=== PATIENT | female | born 1960 | race Caucasian/White ===

== ENCOUNTER → 2018-10-11 | Day surgery (SDC) | payer MEDICARE ==
[~2018-10-11] MED LIST: BUSPIRONE HCL5 MG PO; ESTRADIOL1 MG PO; FENTANYL CITRATE/PF 100MCG/2 ML INJ ONE; FOLIC ACID1 MG PO; GABAPENTIN400 MG PO; GLUCAGON FOR INJ 1 MG VIAL ONE; IRON; MIDAZOLAM HCL 2 MG/2 ML VIAL ONE; ONE DAILY COMP1 EACH; OXYBUTYNIN CHLOR5 MG PO; PANTOPRAZOLE SO40 MG PO; PRAVASTATIN SOD20 MG; PROPOFOL IV EMULSION 10 MG/ML 50 ML VIAL ONE; QUETIAPINE FUMA25 MG PO; VITAMIN B-121000 MC1 IJ; XANAX2 MG; XELJANZ
--- OUTSIDE RECORDS SUMMARY | 2018-10-11 10:46 | XMS REPORT | Clinical Summary ---
Author Author [facility] Address Unknown Phone Unavailable Care Team Providers Care Gravure Press Set Up Operator Name Role Phone Brian Rogers MD PCP Allergies Not on File Medications Not on file Active Problems Not on file Encounters Care Team Description Date Type Specialty Lola Amaral MD Abdominal pain, generalized 09/26/2018 Hospital Radiology Encounter Lola Amaral MD Abdominal pain, generalized (Primary Dx) 09/19/2018 Transcribe Access Orders after 10/10/2017 Social History Date Tobacco Use Types Packs/Day Years Used Never Assessed Sex Assigned at Date Recorded Not on file Industry Job Start Date Occupation Not on file Not on file Not on file Travel End Travel History Travel Start No recent travel history available. Last Filed Vital Signs Not on file Plan of Treatment Health Maintenance Due Date Last Done Comments CERVICAL CANCER SCREENING 1982 COLON CANCER SCREENING 2011 SHINGRIX VACCINE (1 of 2) 2011 BREAST CANCER SCREENING 04/13/2016 04/13/2014, 03/24/2013 INFLUENZA VACCINE 06/01/2018 HEPATITIS B VACCINES Aged Out No longer eligible based on patient's age to complete this topic IPV VACCINES Aged Out No longer eligible based on patient's age to complete this topic MENINGOCOCCAL VACCINE Aged Out No longer eligible based on patient's age to complete this topic Procedures Comments Procedure Name Priority Date/Time Associated Diagnosis ESTIMATED GFR Routine 09/26/2018 1:07 PM [facility] POC CREATININE Routine 09/26/2018 1:[address] [address] ABDOMEN PELVIS W WO Routine 09/26/2018 Abdominal pain, CONTRAST 12:29 PM [facility] generalized after 10/10/2017 Results * Estimated GFR (09/26/2018 1:07 PM [facility] [employer]) Estimated GFR 56 (A) mL/min/1.73 m2 JOEY ALLISON Comment: [facility] CatergoryUnitsInte rpretation G1 >=90 Normal or high G2 60-89Mildly decreased V3x08-17 Mildly to moderately decreased N1v19-38 Moderately to severely decreased G4 15-29Severely decreased G5 <15Kidney failure The eGFR was calculated using the Chronic Kidney Disease Epidemiology Collaboration (CKD-EPI) equation. Interpretation is based on recommendations of the National Kidney Foundation-Kidney Disease Outcomes Quality Initiative (NKF-KDOQI) published in 2014. Specimen Blood Performing Organization Address City/[facility]/Zipcode Phone Number [facility] [address] [place] [address] PATHOLOGY AND GENOMIC MEDICINE [place] [address] [address] * POC creatinine (09/26/2018 1:07 PM [facility] [employer]) POC creatinine 1.1 (H) 0.5 - 0.9 mg/dl JOEY ALLISON Comment: [facility] Meter ID: [id number] Manager General: Millie Peterson Specimen Blood Performing Organization Address City/[facility]/Zipcode Phone Number [facility] [address] [place] [address] PATHOLOGY AND GENOMIC MEDICINE [place] [address] * CT Abdomen Pelvis W Wo Contrast (09/26/2018 12:29 PM [facility]) Narrative Performed At EXAMINATION:CT ABDOMEN PELVIS W WO CONTRAST RADIANT CLINICAL HISTORY:R10.84 Generalized abdominal pain, r10.84 TECHNIQUE: Multiple axial images of the abdomen and pelvis were obtained prior to and following intravenous administration of iodinated contrast. Sagittal and coronal computerized reformatted images were also obtained. Approximately 75 cc of Omnipaque 300 was used. Oral contrast was also used. All CT scan performed using radiation dose reduction techniques. Technical factors are evaluated and adjusted to ensure appropriate moderation of exposure. Automated dose management technology is applied to adjust the radiation dose to minimize expose whileachieving a diagnostic quality image. COMPARISON:07/20/2011. FINDINGS: Lung bases: The lung bases are unremarkable. Liver: There is no intrahepatic biliary dilatation or mass. The liver is normal in attenuation, contour and size. Gallbladder: Surgical absent.. Pancreas: The pancreas is normal in caliber and attenuation. No inflammatory process. The pancreatic duct is within normal limits. Spleen: The spleen is normal in appearance.. Kidneys and ureters: The kidneys function symmetrically. An approximately 1.1 cm cortical cyst is seen within the lower pole of the left kidney. There is no enhancing renal lesion. No hydronephrosis or renal stone. The ureters are normal in course and caliber. Adrenal glands: Unremarkable. GI tract: The small bowel is normal in course and caliber. The colon is unremarkable. No bowel wall thickening is identified. There is no acute inflammatory process. The appendix is normal. No right lower quadrant inflammation is seen. A small hiatal hernia with gastric cardia is again noted. The stomach is otherwise unremarkable. Fluid: None. Pelvis: Bladder: The urinary bladder is unremarkable. Genitalia: The uterus is surgically absent. Fluid: None. Bones: Postsurgical changes of laminectomy and posterior fixation L3-S1 are noted.. Retroperitoneum/intraperitoneum: No retroperitoneal or mesenteric pathologic lymphadenopathy is seen. Vasculature: Scattered atherosclerotic calcifications of the abdominal aorta and iliac arteries are noted. No evidence of aortic aneurysm or dissection.The mesenteric vessels and visceral vessel are patent. Abdominal wall: An approximately 2.9 x 5.4 cm left periumbilical hernia with omental fat is now seen.. There is stranding of the herniated fat. Findings are suggestive of inflammation/infarct changes. IMPRESSION: No CT evidence of appendicitis, colitis or bowel obstruction. Findings suggestive of inflammation/infarct changes of a small left periumbilical hernia with omental fat, developed in the interim. Bosniak category 1 left renal cyst. Unremarkable exam otherwise. [id number] Procedure Note Hm Interface, Radiology Results Incoming - 09/26/2018 12:51 PM [facility] EXAMINATION: CT ABDOMEN PELVIS W WO CONTRAST CLINICAL HISTORY: R10.84 Generalized abdominal pain, r10.84 TECHNIQUE: Multiple axial images of the abdomen and pelvis were obtained prior to and following intravenous administration of iodinated contrast. Sagittal and coronal computerized reformatted images were also obtained. Approximately 75 cc of Omnipaque 300 was used. Oral contrast was also used. All CT scan performed using radiation dose reduction techniques. Technical factors are evaluated and adjusted to ensure appropriate moderation of exposure. Automated dose management technology is applied to adjust the radiation dose to minimize expose while achieving a diagnostic quality image. COMPARISON: 07/20/2011. FINDINGS: Lung bases: The lung bases are unremarkable. Liver: There is no intrahepatic biliary dilatation or mass. The liver is normal in attenuation, contour and size. Gallbladder: Surgical absent.. Pancreas: The pancreas is normal in caliber and attenuation. No inflammatory process. The pancreatic duct is within normal limits. Spleen: The spleen is normal in appearance.. Kidneys and ureters: The kidneys function symmetrically. An approximately 1.1 cm cortical cyst is seen within the lower pole of the left kidney. There is no enhancing renal lesion. No hydronephrosis or renal stone. The ureters are normal in course and caliber. Adrenal glands: Unremarkable. GI tract: The small bowel is normal in course and caliber. The colon is unremarkable. No bowel wall thickening is identified. There is no acute inflammatory process. The appendix is normal. No right lower quadrant inflammation is seen. A small hiatal hernia with gastric cardia is again noted. The stomach is otherwise unremarkable. Fluid: None. Pelvis: Bladder: The urinary bladder is unremarkable. Genitalia: The uterus is surgically absent. Fluid: None. Bones: Postsurgical changes of laminectomy and posterior fixation L3-S1 are noted.. Retroperitoneum/intraperitoneum: No retroperitoneal or mesenteric pathologic lymphadenopathy is seen. Vasculature: Scattered atherosclerotic calcifications of the abdominal aorta and iliac arteries are noted. No evidence of aortic aneurysm or dissection. The mesenteric vessels and visceral vessel are patent. Abdominal wall: An approximately 2.9 x 5.4 cm left periumbilical hernia with omental fat is now seen.. There is stranding of the herniated fat. Findings are suggestive of inflammation/infarct changes. IMPRESSION: No CT evidence of appendicitis, colitis or bowel obstruction. Findings suggestive of inflammation/infarct changes of a small left periumbilical hernia with omental fat, developed in the interim. Bosniak category 1 left renal cyst. Unremarkable exam otherwise. [id number] Performing Organization Address City/State/Zipcode Phone Number [facility] [address] [place] [address] after 10/10/2017 Insurance Payer Benefit Subscriber ID Type Phone Address Plan / Group UHC MEDICARE UNITEDHC xxxxxxxxx [facility] [employer] (Home) [place] [address] Advance Directives Patient has advance care planning documents on file. For more information, melody swenson contact: Joey Allison [address] [place] [address]
--- OUTSIDE RECORDS SUMMARY | 2018-10-11 10:46 | XMS REPORT | Clinical Summary ---
Author Author [facility]Eng[facility] Address Unknown Phone Unavailable Care Team Providers Care Fashion Intern Name Role Phone Lianariley Brian Dyer PCP Allergies No Known Allergies Medications End Date Status Medication Sig Dispensed Refills Start Date Active oxybutynin (DITROPAN) 5 Take 5 mg by 0 MG tablet mouth 2 (two) times daily. Active buPROPion (WELLBUTRIN XL) Take 300 mg 0 300 MG 24 hr tablet by mouth daily. Active leflunomide (ARAVA) 20 MG Take 20 mg by 0 tablet mouth daily. Active estradiol (ESTRACE) 0.5 Take 0.5 mg 0 MG tablet by mouth daily. Active lamoTRIgine (LAMICTAL) Take 100 mg 0 100 MG tablet by mouth daily. Active traZODone (DESYREL) 100 Take 100 mg 0 MG tablet by mouth nightly. Active gabapentin (NEURONTIN) Take 100 mg 0 100 MG capsule by mouth daily. Active cyanocobalamin (VITAMIN Take 1,000 0 B-12) 1000 MCG tablet mcg by mouth every 14 (fourteen) days. Active ACETAMINOPHEN WITH Take by mouth 0 CODEINE (TYLENOL-CODEINE every 8 #4 ORAL) (eight) hours as needed. Active cholecalciferol, vitamin Take 2,000 0 D3, 1,000 unit capsule Units by mouth daily. Active folic acid (FOLVITE) 400 Take 400 mcg 0 MCG tablet by mouth daily. Active FERROUS FUMARATE (IRON Take 27 mg by 0 ORAL) mouth daily. Active multivitamin (THERAGRAN) Take 1 tablet 0 tablet by mouth daily. Active Problems Problem Noted Date Cervicalgia 08/23/2017 Cervical stenosis of spine 08/23/2017 Cervical radiculopathy 08/23/2017 Social History Date Tobacco Use Types Packs/Day Years Used Quit: 2009 Former Smoker 1 37 Smokeless Tobacco: Never Used Alcohol Use Drinks/Week oz/Week Comments Yes occasionally Sex Assigned at Date Recorded Not on file Industry Job Start Date Occupation Not on file Not on file Not on file Travel End Travel History Travel Start No recent travel history available. Last Filed Vital Signs Not on file Plan of Treatment Not on file Implants Device Identifier Shelf Expiration Date Model / Serial / Lot Implanted Type Area Manufactur er 12/30/2021 APS-5440 / [id number] / [id number] Amniofix 4x4cm Aps-5440 - Cement/Jameson N/A: Neck MIMEDX [id number] ler/[employer] Implanted: Qty: 1 on 08/23/2017 by Arnie Pérez MD 12/01/2021 [id number] / [id number] / [id number] Actifuse Shape Bone Graft N/A: Neck APATECH Implanted: Qty: 1 on 08/23/2017 by Arnie Mosley MD [id number] / [id number] / [id number] 5 Cage N/A: Neck ORTHOFIX Implanted: Qty: 2 on 08/23/2017 by Arnie Moon MD / / Cetra Plate N/A: Neck ORTHOFIX Implanted: Qty: 1 on 08/23/2017 by Arnie Moon MD / / 88 Drilling Screw N/A: Neck ORTHOFIX Implanted: Qty: 4 on 08/23/2017 by Arnie Moon MD [id number] / / Drilling Constrained Screw N/A: Neck ORTHOFIX Implanted: Qty: 2 on 08/23/2017 by Arnie Moon MD Results Not on fileafter 10/10/2017 Insurance Payer Benefit Subscriber ID Type Phone Address Plan / Group CARE IMPROVEMENT MEDICARE CARE xxxxxxxxx [facility] Advance Directives For more information, please contact: [address] [address] Date Inactivated Comments Code Status Date Activated 08/24/2017 8:47 PM Full Code 08/23/2017 3:59 PM This code status was determined by: Patient
--- OUTSIDE RECORDS SUMMARY | 2018-10-11 10:47 | XMS REPORT ---
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 M05.741 Active Problem Rheumatoid arthritis of left hand without organ or system involvement with positive rheumatoid factor M05.742 Active Problem Peripheral neuropathy, idiopathic G60.9 Active Assessment Rheumatoid arthritis with rheumatoid factor of right hand without organ or systems involvement M05.741 Active Problem Lumbago 724.2 Active Problem Rheumatoid arthritis 714.0 Active Medications Medication Code System Code Instructions Start Date End Date Status Dosage Humira Pen [facility] [address]-98 40 MG/0.8ML Subcutaneous every 2 weeks Jun 14, 2017 Oct 12, 2017 Active 0.8 ml Enbrel SureClick [facility] [address]-18 50 MG/ML Subcutaneous Once a week Jun 08, 2017 Oct 06, 2017 Inactive 1 ml Leflunomide [facility] [address]-67 20 MG Orally Once a day December 31, 2016 Dec 05, 2017 Inactive 1 tablet Results No Known Results Summary Purpose [employer] Submission
--- OUTSIDE RECORDS SUMMARY | 2018-10-11 10:47 | XMS REPORT | Continuity of Care Document ---
Author Author [facility] Interface Address Unknown Phone Unavailable Problems Problem Status Onset Date Classification Date Reported Comments Source Discharge Diagnosis: Transient ischemic attack 05/27/2014 05/29/2014 [facility] Discharge Diagnosis: Headache 05/27/2014 05/29/2014 [facility] Discharge Diagnosis: Pre-syncope 05/27/2014 05/29/2014 [facility] Discharge Diagnosis: Mood disorder 05/27/2014 05/29/2014 [facility] NEAR SYNCOPE Active 05/27/2014 [facility] Back pain Resolved Problem 05/29/2014 [facility] Rheumatoid arthritis with rheumatoid factor of right hand without organ or systems involvement Active Diagnosis 10/05/2018 Bernie Najam Rheumatoid arthritis of left hand without organ or system involvement with positive rheumatoid factor Active Problem 10/05/2018 Bernie Najam Peripheral neuropathy, idiopathic Active Problem 10/05/2018 Bernie Najam Lumbago Active Problem 10/05/2018 Bernie Najam Rheumatoid arthritis Active Problem 10/05/2018 Bernie Najam Pain, joint, multiple sites Active Diagnosis 10/05/2018 Bernie Najam Chronic pain Active Diagnosis 10/05/2018 Bernie Najam Fibromyalgia Active Diagnosis 10/05/2018 Bernie Najam High risk medication use Active Diagnosis 10/05/2018 Bernie Najam Chronic pain disorder Active Problem 10/05/2018 Bernie Najam Stiffness of left wrist joint Active Diagnosis 03/24/2018 Bernie Najam Swelling of joint, wrist, left Active Diagnosis 03/24/2018 Bernie Najam Pain in left wrist Active Diagnosis 03/24/2018 Bernie Najam Left hip pain Active Diagnosis 03/23/2018 Bernie Najam Stiffness of right wrist joint Active Diagnosis 01/25/2018 Bernie Najam Pain in right wrist Active Diagnosis 01/25/2018 Bernie Najam Pain in left shoulder Active Diagnosis 10/05/2018 Bernie Najam Trochanteric bursitis, left hip Active Diagnosis 10/05/2018 Bernie Najam B12 deficiency Active Diagnosis 10/05/2018 Bernie Castro Medications Medication Details Route Status Patient Instructions Ordering Provider Order Date Source Cyanocobalamin 1 ml shot subcutaneously Active 1000 MCG/ML subcutaneously once a week [facility] 10/03/2018 Bernie Castro Gabapentin 1 capsule Orally Active 400 MG Orally three times daily [facility] 05/05/2018 Bernie Castro Medrol as directed Orally Active 4 MG Orally Once a day [facility] 03/22/2018 Bernie Castro Sulindac 1 tablet with food Orally Active 200 MG Orally Twice a day [facility] 01/26/2018 Bernie Castro Sulindac 1 tab(s) with food as needed Orally Active 200 MG Orally Twice a day [facility] 01/25/2018 Bernie Castro Zorvolex 1 tab(s) with food as needed Orally Active 35 MG Orally Twice a day [facility] 01/04/2018 Bernie Castro Xeljanz 1 tab(s) Orally Active 5 mg Orally bid [facility] 01/04/2018 Bernie Castro Humira Pen 0.8 ml Subcutaneous Active 40 MG/0.8ML Subcutaneous every 2 weeks [facility] 06/14/2017 Bernie Castro Arthrotec 1 tablet Orally Active 50-0.2 MG Orally Twice a day prn with food [facility] 06/08/2017 Bernie Castro Enbrel SureClick 1 ml Subcutaneous Active 50 MG/ML Subcutaneous Once a week [facility] 06/08/2017 Bernie Castro Duloxetine HCl 1 capsule Orally Active 60 MG Orally Once a day [facility] 02/25/2017 Bernie Castro Vivlodex 1 capsule Orally Active 10 MG Orally Once a day [facility] 02/25/2017 Bernie Castro Leflunomide 1 tablet Orally Active 20 MG Orally Once a day [facility] 12/31/2016 Bernie Castro Meloxicam 1 tablet Orally Active 15 MG Orally Once a day prn with food [facility] 12/31/2016 Bernie Castro Zorvolex 1 capsule Orally Active 35 MG Orally bid prn with food [facility] 12/28/2016 Bernie Castro Gabapentin 1 capsule Orally Active 300 MG Orally Three times a day [facility] 09/17/2014 Bernie Castro Orencia as directed Intravenous Active 250 MG Intravenous [facility] 08/30/2014 Bernie Castro Duloxetine HCl 1 capsule Orally Active 60 MG Orally Once a day [facility] 08/08/2014 Bernie Castro Pantoprazole Sodium 1 tablet Orally Active 40 MG Orally Once a day [facility] 08/08/2014 Bernie Castro tramadol hydrochloride 50 MG Oral Tablet 50 mg, Route: PO, Drug form: TAB, ONCE, Dosing Weight 81.818, kg, Priority: STAT, Start date: 05/27/14 13:26:00, Stop date: 05/27/14 13:26:00 Inactive 05/27/2014 [facility] Morphine 4 mg, Route: IVP, Drug form: INJ, ONCE, Dosing Weight 81.818, kg, Priority: STAT, Start date: 05/27/14 11:04:00, Stop date: 05/27/14 11:04:00 Inactive 05/27/2014 [facility] Iohexol 75 mL, Route: IVP, Drug Form: SOLN, Dosing Weight 81.818, kg, ONCALL, STAT, Start date: 05/27/14 10:24:00, Duration: 1 doses or times, Dose=2.2ml/kg, Max [id number] -- "To be infused by Radiology Staff ONLY"Special Instructions: Dose=2.2ml/kg, Max [id number] -- "To be infused by Radiology Staff ONLY" Inactive 05/27/2014 [facility] Sodium Chloride 0.154 MEQ/ML Injectable Solution 1,000 mL, Rate: 125 ml/hr, Infuse over: 8 hr, Route: IV, Dosing Weight 81.818 kg, Total Volume: 1,000, Start date: 05/27/14 9:08:00, Duration: 30 day, Stop date: 06/26/14 9:07:00 Inactive 05/27/2014 [facility] Saline Flush 0.9% 5 mL, Route: IVP, Drug Form: INJ, Dosing Weight 81.818, kg, PRN, PRN Line Flush, Start date: 05/27/14 9:08:00, Duration: 30 day, Stop date: 06/26/14 9:07:00Notes: (Same as: BD Posiflush) Inactive 05/27/2014 [facility] Escitalopram Oxalate 0.5 tablet Orally Active 20 MG Orally Once a day Najam Bernie Najam Hair/Skin/Nails as directed Orally Active Orally Najam Bernie Najam Fish Oil 1 capsule Orally Active 300 MG Orally Twice a day Najam Bernie Najam Folic Acid 1 tablet Orally Active 800 MCG Orally Once a day Najam Bernie Najam B-12 Compliance Injection 1 ml Injection Active 1000 MCG/ML Injection Najam Bernie Najam Lamotrigine 2 tablets Orally Active 100 MG Orally Twice a day Najam Bernie Najam Trazodone HCl 1 tablet at bedtime Orally Active 100 MG Orally Once a day N[facility]am Bernie Najam Gabapentin not defined Orally Active 100 MG Orally Najam Bernie Najam Escitalopram Oxalate 0.5 tablet Orally Active 20 MG Orally Once a day Najam Bernie Najam Gabapentin 1 cap(s) Orally Active 300 MG Orally tid Najam Bernie Najam Folic Acid 1 tablet Orally Active 800 MCG Orally Once a day Najam Bernie Najam Hair/Skin/Nails as directed Orally Active Orally Najam Bernie Najam Fish Oil 1 capsule Orally Active 300 MG Orally Twice a day Najam Bernie Najam B-12 Compliance Injection 1 ml Injection Active 1000 MCG/ML Injection Najam Bernie Najam Lamotrigine 2 tablets Orally Active 100 MG Orally Twice a day Najam Bernie Najam BuPROPion HCl 1 tablet Orally Active 100 MG Orally Once a day Najam Bernie Najam Pantoprazole Sodium 2 tablets Orally Active 20 MG Orally Once a day Najam Bernie Najam Trazodone HCl 1 tablet at bedtime Orally Active 100 MG Orally Once a day Najam Bernie Najam Duloxetine HCl 1 capsule Orally Active 60 MG Orally Once a day Najam Bernie Najam Pantoprazole Sodium 2 tablets Orally Active 20 MG Orally Once a day Najam Bernie Najam BuPROPion HCl 1 tablet Orally Active 100 MG Orally Once a day Najam Bernie Najam Duloxetine HCl 1 capsule Orally Active 60 MG Orally Once a day Najam Bernie Najam Xeljanz 1 tab(s) Orally Active 5 mg Orally bid Najam Bernie Najam Estradiol 1 patch to skin Transdermal Active 0.05 MG/24HR Transdermal Two times a Week Najam Bernie Najam BusPIRone HCl 1 tablet Orally Active 15 MG Orally Twice a day Najam Bernie Najam Iron 1 tablet Orally Active 325 (65 Fe) MG Orally Once a day Najam Bernie Najam Oxybutynin Chloride 1 tablet Orally Active 5 MG Orally Twice a day Najam Bernie Najam Gabapentin 1 capsule Orally Active 400 MG Orally three times daily Najam Bernie Najam Cyanocobalamin 1 tablet Orally Active 1000 MCG Orally Once a day Najam Bernie Najam Sulindac 1 tablet with food Orally Active 200 MG Orally Twice a day Najam Bernie Najam Quetiapine Fumarate 1 tablet Orally Active 200 MG Orally Once a day Najam Bernie Najam BuPROPion HCl (XL) 1 tablet in the morning Orally Active 300 MG Orally Once a day Najam Bernie Najam Pravastatin Sodium 1 tablet Orally Active 20 MG Orally Once a day Najam Bernie Najam One Daily Womens 50+ as directed Orally Active - Orally Najam Bernie Najam CCP Caffeine Free Unknown NA Active Najam Bernie Najam Mirtazapine Unknown Orally Active 15 MG Orally Once a day Najam Bernie Najam Escitalopram Oxalate 1 tablet Orally Active 10 MG Orally Once a day Najam Bernie Najam Propranolol HCl 1 tablet Orally Active 20 MG Orally Three times a day Najam Bernie Najam Cyanocobalamin 1 tablet Orally Active 1000 MCG Orally Once a day Najam Bernie Najam Potassium 1 tablet Orally Active 99 MG Orally Once a day Najam Bernie Najam Sucralfate Unknown Orally Active 1 GM Orally Twice a day Najam Bernie Najam Amoxicillin 1 tablet Orally Active 875 MG Orally Twice a day Najam Bernie Najam Echinacea as directed Orally Active 350 MG Orally Najam Bernie Najam Cyclobenzaprine HCl 1 tablet Orally Active 5 MG Orally Three times a day Najam Bernie Najam Pantoprazole Sodium 1 tablet Orally Active 40 MG Orally Once a day Najam Bernie Najam Alprazolam & Diet Manage Prod Unknown Orally Active 0.5 MG Orally Najam Bernie Najam Tizanidine HCl 1 tablet as needed Orally Active 4 MG Orally every 8 hrs Gloria Castro Quetiapine Fumarate 1 tablet at bedtime Orally Active 200 MG Orally Once a day Gloria Castro Duloxetine HCl 1 capsule Orally Active 30 MG Orally Once a day Gloria Castro Gabapentin 1 capsule Orally Active 400 MG Orally Three times a day Gloria Castro Celebrex 1 capsule Orally Active 200 MG Orally Once a day Gloria Castro Lyrica 1 capsule Orally Active 50 MG Orally Three times a day Gloria Castro Savella 1 tablet Orally Active 50 MG Orally Twice a day Gloria Castro Tramadol HCl 1 tablet as needed Orally Active 50 MG Orally every 6 hrs Gloria Castro Metoclopramide HCl Unknown Orally Active 10 MG Orally Gloria Castro Allergies, Adverse Reactions, Alerts Substance Category Reaction Severity Reaction type Status Date Reported Comments Source N.K.D.A. Adverse Reaction Info Not Available Adverse Reaction Active 10/03/2018 Bernie Castro Immunizations Immunization Date Given Site Status Last Updated Comments Source Results Order Name Results Value Reference Range Date Interpretation Comments Source URINE AND STOOL UA Leuk Est Negative (05/27/14 9:18 AM) Negative 05/27/2014 [facility] URINE AND STOOL UA Nitrite Negative (05/27/14 9:18 AM) Negative 05/27/2014 [facility] URINE AND STOOL UA Urobilinogen 0.2 EU/dL 0.1 - 1.0 05/27/2014 [facility] URINE AND STOOL UA Blood Negative (05/27/14 9:18 AM) Negative 05/27/2014 [facility] URINE AND STOOL UA Bili Negative *NA* (05/27/14 9:18 AM) Negative 05/27/2014 [facility] URINE AND STOOL UA Ketones Negative mg/dL Negative mg/dL 05/27/2014 [facility] URINE AND STOOL UA Glucose Negative mg/dL Negative mg/dL 05/27/2014 [facility] URINE AND STOOL UA Protein Negative mg/dL Negative mg/dL 05/27/2014 [facility] URINE AND STOOL UA pH 5.5 5.0 - 8.0 05/27/2014 [facility] URINE AND STOOL UA Spec Grav 1.020 <=1.030 05/27/2014 [facility] URINE AND STOOL UA Turbidity Clear (05/27/14 9:18 AM) Clear 05/27/2014 [facility] URINE AND STOOL UA Color Yellow *NA* (05/27/14 9:18 AM) Yellow 05/27/2014 [facility] URINE AND STOOL UA WBC 6-10 /HPF None Seen /HPF 05/27/2014 [facility] URINE AND STOOL UA Bacteria Occasional /HPF None Seen /HPF 05/27/2014 [facility] URINE AND STOOL UA Sq Epi Occasional /LPF Few /LPF 05/27/2014 [facility] DRUG SCREEN U Benzodia Scr Negative *NA* (05/27/14 9:18 AM) Negative 05/27/2014 [facility] DRUG SCREEN U Cocaine Scr Negative *NA* (05/27/14 9:18 AM) Negative 05/27/2014 [facility] DRUG SCREEN U Cannab Scr Negative *NA* (05/27/14 9:18 AM) Negative 05/27/2014 [facility] DRUG SCREEN U Phencyc Scr Negative *NA* (05/27/14 9:18 AM) Negative 05/27/2014 [facility] DRUG SCREEN U Opiate Scr Positive *ABN* (05/27/14 9:18 AM) Negative 05/27/2014 [facility] DRUG SCREEN UDS Note See Note 3 (05/27/14 9:18 AM) 05/27/2014 3Interpretive Data: Drugs reported as positive have not been confirmed by a second method and should be used for medical purposes only. To order confirmation, contact laboratory. note: Below are cut-off concentrations for all urine drugs of abuse performed in the laboratory. Some drugs listed in the table may not be included in this panel. Description Cut-off concentration Amphetamine 1000 ng/mL Barbiturates 200 ng/mL Benzodiazepines 300 ng/mL Cocaine metabolites 300 ng/mL Opiates 300 ng/mL Phencyclidine 25 ng/mL Propoxyphene 300 ng/mL Marijuana metabolites 50 ng/mL Methadone 300 ng/mL Urine alcohol 20 mg/dL [facility] DRUG SCREEN U Jessica Scr Negative *NA* (05/27/14 9:18 AM) Negative 05/27/2014 [facility] DRUG SCREEN U Amph Scr Negative *NA* (05/27/14 9:18 AM) Negative 05/27/2014 [facility] CARDIAC ENZYMES Troponin-I null 0.00 - 0.40 05/27/2014 [facility] CARDIAC ENZYMES Total CK 85 unit/L 12 - 191 05/27/2014 [facility] CHEM PANEL Globulin 3.5 g/dL 2.0 - 4.0 05/27/2014 [facility] CHEM PANEL A/G Ratio 1.0 0.7 - 1.6 05/27/2014 [facility] CHEM PANEL B/C Ratio 20 6 - 25 05/27/2014 [facility] CHEM PANEL AGAP 15.5 meq/L 10.0 - 20.0 05/27/2014 [facility] CHEM PANEL AST 28 unit/L 0 - 37 05/27/2014 [facility] CHEM PANEL Alk Phos 101 unit/L 39 - 136 05/27/2014 [facility] CHEM PANEL Bili Total 0.5 mg/dL 0.2 - 1.3 05/27/2014 [facility] CHEM PANEL Total Protein 7.1 g/dL 6.4 - 8.4 05/27/2014 [facility] CHEM PANEL ALT 45 unit/L 0 - 65 05/27/2014 [facility] CHEM PANEL Albumin Lvl 3.6 g/dL 3.5 - 5.0 05/27/2014 [facility] CHEM PANEL eGFR 64 mL/min/1.73m2 05/27/2014 1Result Comment: The eGFR is calculated using the CKD-EPI formula. In most young, healthy individuals the eGFR will be >90 mL/min/1.73m2. The eGFR declines with age. An eGFR of 60-89 may be normal in some populations, particularly the elderly, for whom the CKD-EPI formula has not been extensively validated. Use of the eGFR is not recommended in the following populations: Individuals with unstable creatinine concentrations, including patients and those with serious co-morbid conditions. Patients with extremes in muscle mass or diet. The data above are obtained from the National Kidney Disease Education Program (NKDEP) which additionally recommends that when the eGFR is used in patients with extremes of body mass index for purposes of drug dosing, the eGFR should be multiplied by the estimated BMI. [facility] CHEM PANEL Sodium Lvl 136 meq/L 135 - 145 05/27/2014 [facility] CHEM PANEL Chloride Lvl 103 meq/L 95 - 109 05/27/2014 [facility] CHEM PANEL CO2 21 meq/L 24 - 32 05/27/2014 [facility] CHEM PANEL Potassium Lvl 3.5 meq/L 3.5 - 5.1 05/27/2014 [facility] CHEM PANEL Calcium Lvl 8.3 mg/dL 8.5 - 10.5 05/27/2014 [facility] CHEM PANEL BUN 20 mg/dL 7 - 22 05/27/2014 [facility] CHEM PANEL Creatinine Lvl 1.0 mg/dL 0.5 - 1.4 05/27/2014 [facility] CHEM PANEL Glucose Lvl 94 mg/dL 70 - 99 05/27/2014 2Interpretive Data: Adult reference range values reflect the clinical guidelines of the [place] [employer]. [facility] HEMATOLOGY PTT 26.0 s 22.9 - 35.8 05/27/2014 7Interpretive Data: Heparin Therapeutic Range: 57 - 92 Seconds [facility] HEMATOLOGY PT 14.1 s 12.0 - 14.7 05/27/2014 [facility] HEMATOLOGY INR 1.10 0.85 - 1.17 05/27/2014 6Interpretive Data: RECOMMENDED RANGES FOR PROTIME INR: 2.0-3.0 for most medical and surgical thromboembolic states. 2.5-3.5 for artificial heart valves and recurrent embolism. INR SHOULD BE USED ONLY FOR PATIENTS ON STABLE ANTICOAGULANT THERAPY. [facility] HEMATOLOGY Hct 33.1 % 36.0 - 48.0 05/27/2014 [facility] HEMATOLOGY RBC 3.56 M/CMM 4.20 - 5.40 05/27/2014 [facility] HEMATOLOGY MCV 92.8 fL 81.0 - 99.0 05/27/2014 [facility] HEMATOLOGY Hgb 11.6 g/dL 12.0 - 16.0 05/27/2014 [facility] HEMATOLOGY MCH 32.4 pg 27.0 - 31.0 05/27/2014 [facility] HEMATOLOGY Platelet 197 K/CMM 133 - 450 05/27/2014 [facility] HEMATOLOGY MCHC 34.9 g/dL 32.0 - 36.0 05/27/2014 [facility] HEMATOLOGY MPV 7.8 fL 7.4 - 10.4 05/27/2014 [facility] HEMATOLOGY RDW 13.1 % 11.5 - 14.5 05/27/2014 [facility] HEMATOLOGY WBC 6.5 K/CMM 3.7 - 10.4 05/27/2014 [facility] HEMATOLOGY Monocytes # 0.9 K/CMM 0.0 - 0.8 05/27/2014 [facility] HEMATOLOGY Lymphocytes # 3.3 K/CMM 1.0 - 5.5 05/27/2014 [facility] HEMATOLOGY Segs-Bands # 2.1 K/CMM 1.5 - 8.1 05/27/2014 [facility] HEMATOLOGY Basophils # 0.0 K/CMM 0.0 - 0.2 05/27/2014 [facility] HEMATOLOGY Eosinophils # 0.2 K/CMM 0.0 - 0.5 05/27/2014 [facility] HEMATOLOGY Segs 32.0 % 45.0 - 75.0 05/27/2014 [facility] HEMATOLOGY Basophils 0.1 % 0.0 - 1.0 05/27/2014 [facility] HEMATOLOGY Eosinophils 3.0 % 0.0 - 4.0 05/27/2014 [facility] HEMATOLOGY Lymphocytes 51.4 % 20.0 - 40.0 05/27/2014 [facility] HEMATOLOGY Monocytes 13.5 % 2.0 - 12.0 05/27/2014 [facility] TOXICOLOGY Etoh (%) <0.003 % 05/27/2014 4Interpretive Data: Ethanol testing results should be used for medical purposes only. Negative Range: <0.003% Toxic Range: >0.25% [facility] TOXICOLOGY Ethanol Lvl <3.0 mg/dL 05/27/2014 5Interpretive Data: Negative Range: <3 mg/dL Toxic Range: >250 mg/dL [facility] Brain wo contrast CT Brain wo contrast CT EXAM: CTA NECK EXAM: CTA BRAIN EXAM: NONCONTRAST CT BRAIN INDICATION: Aphasia COMPARISON: None TECHNIQUE Rapid acquisition spiral images were obtained following the intravenous administration of 85 cc Omnipaque 350. 3D MIP reconstructions were performed. Precontrast images of the brain were also obtained. DISCUSSION: NONCONTRAST CT HEAD: A few hypodensities in the left frontal and temporoparietal white matter appear chronic appearing Hypodensity extending into the genu of the corpus callosum is age-indeterminate. No intracranial hemorrhage. No mass effect. No hydrocephalus. Mucosal thickening in a few anterior and posterior ethmoidal air cells. Calvarium is intact. . CTA BRAIN: No proximal occlusion, flow limiting stenosis or aneurysm is identified intracranially. CTA NECK: The common carotid arteries are normal in size. The carotid bifurcations show mild atherosclerosis without significant stenosis. Vertebral arteries are codominant and have a normal course and caliber in the neck. IMPRESSION: 1. No major branch occlusion, flow limiting stenosis, or aneurysm is identified intracranially. 2. White matter lesions in the left cerebral hemisphere appear mostly chronic, however a lesion extending into the genu of the corpus callosum is age-indeterminate. No intracranial hemorrhage. Differential considerations include ischemic changes versus demyelinating lesions. Further evaluation with MRI would be helpful. 3. Mild atherosclerosis at the carotid bifurcations without significant stenosis by NASCET criteria. Vertebral arteries are unremarkable. All quantitative and qualitative assessments of carotid bifurcation and proximal internal carotid artery stenosis are made at referencing the distal internal carotid artery. 05/27/2014 - - Read by: Miguelina Cisneros MD Dictated Date/time: 05/27/14 12:21 Electronically Signed by: Miguelina Cisneros MD 05/27/14 12:37 FINAL REPORT [facility] Brain/Neck CTA Brain/Neck CTA EXAM: CTA NECK EXAM: CTA BRAIN EXAM: NONCONTRAST CT BRAIN INDICATION: Aphasia COMPARISON: None TECHNIQUE Rapid acquisition spiral images were obtained following the intravenous administration of 85 cc Omnipaque 350. 3D MIP reconstructions were performed. Precontrast images of the brain were also obtained. DISCUSSION: NONCONTRAST CT HEAD: A few hypodensities in the left frontal and temporoparietal white matter appear chronic appearing Hypodensity extending into the genu of the corpus callosum is age-indeterminate. No intracranial hemorrhage. No mass effect. No hydrocephalus. Mucosal thickening in a few anterior and posterior ethmoidal air cells. Calvarium is intact. . CTA BRAIN: No proximal occlusion, flow limiting stenosis or aneurysm is identified intracranially. CTA NECK: The common carotid arteries are normal in size. The carotid bifurcations show mild atherosclerosis without significant stenosis. Vertebral arteries are codominant and have a normal course and caliber in the neck. IMPRESSION: 1. No major branch occlusion, flow limiting stenosis, or aneurysm is identified intracranially. 2. White matter lesions in the left cerebral hemisphere appear mostly chronic, however a lesion extending into the genu of the corpus callosum is age-indeterminate. No intracranial hemorrhage. Differential considerations include ischemic changes versus demyelinating lesions. Further evaluation with MRI would be helpful. 3. Mild atherosclerosis at the carotid bifurcations without significant stenosis by NASCET criteria. Vertebral arteries are unremarkable. All quantitative and qualitative assessments of carotid bifurcation and proximal internal carotid artery stenosis are made at referencing the distal internal carotid artery. 05/27/2014 - - Read by: Miguelina Cisneros MD Dictated Date/time: 05/27/14 12:21 Electronically Signed by: Miguelina Cisneros MD 05/27/14 12:37 FINAL REPORT [facility] Chest 2 views Chest 2 views EXAM: XR CHEST 2 VIEWS DATE: 2014-05-27 10:04:00 INDICATION: Syncope COMPARISON: None available. TECHNIQUE: Frontal and lateral chest radiographs DISCUSSION: No pulmonary or pleural based abnormality is identified. Pulmonary vascularity is normal. The cardiomediastinal silhouette is normal. No acute bony abnormality is identified. IMPRESSION: No acute cardiopulmonary abnormality identified. 05/27/2014 - - This report was dictated by a [facility] Worker/Fellow. I have personally reviewed the images as well as the Resident's interpretation and agree with the findings. Read by: Aravind Yen (ryan Resident: Aravind Yen (ryan Dictated Date/time: 05/27/14 10:59 Electronically Signed by: Cynthia Moncada MD 05/27/14 14:14 FINAL REPORT [facility] Vital Signs Vital Sign Value Date Comments Source Height 65.5 10/03/2018 Bernie Najam Diastolic (mm Hg) 87 10/03/2018 Bernie Najam Systolic (mm Hg) 133 10/03/2018 Bernie Najam Weight 200.6 10/03/2018 Bernie Najam Height 65.5 05/05/2018 Bernie Najam Diastolic (mm Hg) 97 05/05/2018 Bernie Najam Systolic (mm Hg) 124 05/05/2018 Bernie Najam Weight 205.6 05/05/2018 Bernie Najam Height 65.5 03/22/2018 Bernie Najam Diastolic (mm Hg) 81 03/22/2018 Bernie Najam Systolic (mm Hg) 118 03/22/2018 Bernie Najam Weight 189 03/22/2018 Bernie Najam Height 65.5 01/24/2018 Bernie Najam Diastolic (mm Hg) 81 01/24/2018 Bernie Najam Systolic (mm Hg) 118 01/24/2018 Bernie Najam Weight 189 01/24/2018 Bernie Najam Height 65.5 01/04/2018 Bernie Najam Diastolic (mm Hg) 81 01/04/2018 Bernie Najam Systolic (mm Hg) 118 01/04/2018 Bernie Najam Weight 189 01/04/2018 Bernie Najam Height 65.5 06/08/2017 Bernie Najam Diastolic (mm Hg) 81 06/08/2017 Bernie Najam Systolic (mm Hg) 113 06/08/2017 Bernie Najam Weight 190 06/08/2017 Bernie Najam Height 65.5 06/02/2017 Bernie Najam Diastolic (mm Hg) 88 06/02/2017 Bernie Najam Systolic (mm Hg) 114 06/02/2017 Bernie Najam Weight 202 06/02/2017 Bernie Najam Height 65.5 02/25/2017 Bernie Najam Diastolic (mm Hg) 83 02/25/2017 Bernie Najam Systolic (mm Hg) 127 02/25/2017 Bernie Najam Weight 202 02/25/2017 Bernie Najam Height 65.5 12/28/2016 Bernie Najam Diastolic (mm Hg) 99 12/28/2016 Bernie Najam Systolic (mm Hg) 137 12/28/2016 Bernie Najam Weight 209.4 12/28/2016 Bernie Najam Systolic (mm Hg) 124 05/27/2014 [facility] Respitory Rate 18 05/27/2014 [facility] Heart Rate 89 05/27/2014 [facility] Diastolic (mm Hg) 74 05/27/2014 [facility] Temperature Oral (F) 98.2 F 05/27/2014 [facility] Heart Rate 92 05/27/2014 [facility] Diastolic (mm Hg) 70 05/27/2014 [facility] Systolic (mm Hg) 115 05/27/2014 [facility] Heart Rate 89 05/27/2014 [facility] Diastolic (mm Hg) 80 05/27/2014 [facility] Systolic (mm Hg) 119 05/27/2014 [facility] Height 162.56 cm 05/27/2014 [facility] BMI Calculated 30.96 05/27/2014 [facility] Weight 81.818 05/27/2014 [facility] Temperature Oral (F) 98.1 F 05/27/2014 [facility] Respitory Rate 18 05/27/2014 [facility] Encounters Location Location Details Encounter Type Encounter Number Reason For Visit Attending Provider ADM Date DC Date Status Source [facility] [id number] Rivas Paz 05/27/2014 05/27/2014 [facility] Follow up [id number] 12/28/2016 12/28/2016 [facility] Follow up [id number] 12/28/2016 12/28/2016 [facility] ZORVOLEX- TO EXPENSIVE/Meloxicam/Leflunomide - FYI [id number] 12/30/2016 12/30/2016 Bernie Castro Procedures Procedure Code Date Perfomer Comments Source
--- OUTSIDE RECORDS SUMMARY | 2018-10-11 10:47 | XMS REPORT ---
Author Author Bernie Castro Organization [employer] Address Unknown Phone Unavailable Care Team Providers Care Retail Maintenance Technician Name Role Phone Bernie Castro CP Unavailable Allergies, Adverse Reactions, Alerts Substance Reaction Event Type N.K.D.A. Info Not Available Non Drug Allergy Problems Problem Type Condition Code Onset Dates Condition Status Assessment Pain, joint, multiple sites M25.50 Active Assessment Chronic pain G89.29 Active Assessment Fibromyalgia M79.7 Active Assessment Peripheral neuropathy, idiopathic G60.9 Active Problem Rheumatoid arthritis with rheumatoid factor of right hand without organ or systems involvement M05.741 Active Problem Rheumatoid arthritis of left hand without organ or system involvement with positive rheumatoid factor M05.742 Active Problem Peripheral neuropathy, idiopathic G60.9 Active Assessment Rheumatoid arthritis with rheumatoid factor of right hand without organ or systems involvement M05.741 Active Assessment High risk medication use Z79.899 Active Problem Lumbago 724.2 Active Problem Rheumatoid arthritis 714.0 Active Medications Medication Code System Code Instructions Start Date End Date Status Dosage B-12 Compliance Injection [facility] [address]-30 1000 MCG/ML Injection Active 1 ml Trazodone HCl [facility] [address]-03 100 MG Orally Once a day Active 1 tablet at bedtime Duloxetine HCl [facility] [address]-68 60 MG Orally Once a day Active 1 capsule Pantoprazole Sodium [facility] [address]-80 20 MG Orally Once a day Active 2 tablets Leflunomide [facility] [address]-42 20 MG Orally Once a day December 31, 2016 Dec 05, 2017 Active 1 tablet Lamotrigine [facility] [address]-24 100 MG Orally Twice a day Active 2 tablets Gabapentin [facility] [address]-95 100 MG Orally Active not defined Arthrotec [facility] [address]-83 50-0.2 MG Orally Twice a day prn with food Jun 08, 2017 Dec 05, 2017 Active 1 tablet BuPROPion HCl [facility] [address]-00 100 MG Orally Once a day Active 1 tablet Vivlodex [facility] [address]-03 10 MG Orally Once a day February 25, 2017 Jun 25, 2017 Inactive 1 capsule Folic Acid [facility] [address]-79 800 MCG Orally Once a day Active 1 tablet Enbrel SureClick [facility] [address]-88 50 MG/ML Subcutaneous Once a week Jun 08, 2017 Oct 06, 2017 Active 1 ml Fish Oil [facility] [address]-11 300 MG Orally Twice a day Active 1 capsule Escitalopram Oxalate [facility] [address]-23 20 MG Orally Once a day Active 0.5 tablet Hair/Skin/Nails [facility] [address]28 Orally Active as directed Vital Signs Date/Time: Jun 08, 2017 Height 65.5 in Blood Pressure Diastolic 81 mm Hg Blood Pressure Systolic 113 mm Hg Weight 190 lbs Results No Known Results Summary Purpose [employer]ClinicalWorks Submission
--- OUTSIDE RECORDS SUMMARY | 2018-10-11 10:47 | XMS REPORT ---
Author Author Bernie Castro Organization [employer] Address Unknown Phone Unavailable Care Team Providers Care Contribution Solicitor Name Role Phone Bernie Castro CP Unavailable Allergies No Known Allergies Problems Problem Type Condition Code Onset Dates Condition Status Problem Peripheral neuropathy, idiopathic G60.9 Active Problem Rheumatoid arthritis with rheumatoid factor of right hand without organ or systems involvement M05.741 Active Problem Chronic pain disorder G89.4 Active Problem Rheumatoid arthritis 714.0 Active Problem Rheumatoid arthritis of left hand without organ or system involvement with positive rheumatoid factor M05.742 Active Problem Lumbago 724.2 Active Medications No Known Medications Results No Known Results Summary Purpose [employer]Clinical[employer] Submission
--- OUTSIDE RECORDS SUMMARY | 2018-10-11 10:47 | XMS REPORT ---
Author Author Bernie Castro [facility] e[employer] Address Unknown Phone Unavailable Care Team Providers Care Marine Equipment Test Engineer Name Role Phone Bernie Castro CP Unavailable Allergies, Adverse Reactions, Alerts Substance Reaction Event Type N.K.D.A. Info Not Available Non Drug Allergy Problems Problem Type Condition Code Onset Dates Condition Status Assessment Fibromyalgia M79.7 Active Assessment High risk medication use Z79.899 Active Assessment Chronic pain G89.29 Active Assessment Peripheral neuropathy, idiopathic G60.9 Active Assessment Pain, joint, multiple sites M25.50 Active Problem Peripheral neuropathy, idiopathic G60.9 Active Problem Rheumatoid arthritis with rheumatoid factor of right hand without organ or systems involvement M05.741 Active Problem Chronic pain disorder G89.4 Active Problem Rheumatoid arthritis 714.0 Active Assessment Rheumatoid arthritis with rheumatoid factor of right hand without organ or systems involvement M05.741 Active Problem Rheumatoid arthritis of left hand without organ or system involvement with positive rheumatoid factor M05.742 Active Problem Lumbago 724.2 Active Medications Medication Code System Code Instructions Start Date End Date Status Dosage Xeljanz [facility] 55793931065 5 mg Orally bid January 04, 2018 Active 1 tab(s) Trazodone HCl [facility] 75481469837 100 MG Orally Once a day Active 1 tablet at bedtime Hair/Skin/Nails [facility] 97067861594 Orally Active as directed Escitalopram Oxalate [facility] 97405929843 20 MG Orally Once a day Active 0.5 tablet B-12 Compliance Injection [facility] 52182670577 1000 MCG/ML Injection Active 1 ml Duloxetine HCl ND 83607503989 60 MG Orally Once a day Inactive 1 capsule Lamotrigine ND 24876267743 100 MG Orally Twice a day Active 2 tablets BuPROPion HCl [facility] 64971210858 100 MG Orally Once a day Active 1 tablet Fish Oil [facility] 65488831635 300 MG Orally Twice a day Active 1 capsule Pantoprazole Sodium [facility] 58587592957 20 MG Orally Once a day Active 2 tablets Gabapentin [facility] 66592895433 300 MG Orally tid Active 1 cap(s) Zorvolex [facility] 53188888581 35 MG Orally Twice a day January 04, 2018 May 04, 2018 Active 1 tab(s) with food as needed Folic Acid [facility] 40881359179 800 MCG Orally Once a day Active 1 tablet Vital Signs Date/Time: January 04, 2018 Height 65.5 in Blood Pressure Diastolic 81 mm Hg Blood Pressure Systolic 118 mm Hg Weight 189 lbs Results No Known Results Summary Purpose eClinicalWorks Submission
--- OUTSIDE RECORDS SUMMARY | 2018-10-11 10:47 | XMS REPORT ---
Author Author Bernie Castro Organization [employer] Address Unknown Phone Unavailable Care Team Providers Care Edge Sawyer Name Role Phone Bernie Castro CP Unavailable Allergies No Known Allergies Problems Problem Type Condition Code Onset Dates Condition Status Problem Peripheral neuropathy, idiopathic G60.9 Active Problem Rheumatoid arthritis with rheumatoid factor of right hand without organ or systems involvement M05.741 Active Problem Chronic pain disorder G89.4 Active Problem Rheumatoid arthritis 714.0 Active Assessment Left hip pain M25.552 Active Problem Rheumatoid arthritis of left hand without organ or system involvement with positive rheumatoid factor M05.742 Active Problem Lumbago 724.2 Active Medications Medication Code System Code Instructions Start Date End Date Status Dosage Medrol [facility] 99167826982 4 MG Orally Once a day March 22, 2018 Active as directed Results No Known Results Summary Purpose [employer]ClinicalWorks Submission
--- OUTSIDE RECORDS SUMMARY | 2018-10-11 10:47 | XMS REPORT ---
Author Author Bernie Castro Organization [employer] Address Unknown Phone Unavailable Care Team Providers Care Oliving Machine Operator Name Role Phone Bernie Castro CP Unavailable [...]
--- OUTSIDE RECORDS SUMMARY | 2018-10-11 10:47 | XMS REPORT ---
Author Author Bernie Castro Organization [employer] Address Unknown Phone Unavailable Care Team Providers Care Chapter Relations Administrator Name Role Phone Bernie Castro CP Unavailable Allergies No Known Allergies Problems Problem Type Condition Code Onset Dates Condition Status Problem Peripheral neuropathy, idiopathic G60.9 Active Problem Rheumatoid arthritis with rheumatoid factor of right hand without organ or systems involvement M05.741 Active Problem Chronic pain disorder G89.4 Active Problem Rheumatoid arthritis 714.0 Active Assessment Chronic pain disorder G89.4 Active Problem Rheumatoid arthritis of left hand without organ or system involvement with positive rheumatoid factor M05.742 Active Problem Lumbago 724.2 Active Medications No Known Medications Results No Known Results Summary Purpose eClinicalWorks Submission
--- OUTSIDE RECORDS SUMMARY | 2018-10-11 10:47 | XMS REPORT | Summary of Care ---
Author Organization Unknown Address Unknown Phone Unavailable Encounter ERIC Foy(CLOVIS) [id number] Date(s): 05/27/14 - 05/27/[address] Discharge Diagnosis: Transient ischemic attack (TIA) Discharge Diagnosis: Headache Discharge Diagnosis: Pre-syncope Discharge Diagnosis: Mood disorder Discharge Disposition: Home Physician Attending: Rivas Paz MD Reason for Visit NEAR SYNCOPE Vital Signs 1 2 3 Most recent to oldest [Reference Range]: 162.56 cm (05/27/14 8:24 AM) Height 98.2 DegF (05/27/14 2:30 PM) 98.1 DegF (05/27/14 8:24 AM) Temperature Oral [96.4-99.1 DegF] 124 mmHg (05/27/14 2:30 PM) 115 mmHg (05/27/14 1:20 PM) 119 mmHg (05/27/14 11:05 AM) Systolic Blood Pressure [90-140 mmHg] 74 mmHg (05/27/14 2:30 PM) 70 mmHg (05/27/14 1:20 PM) 80 mmHg (05/27/14 11:05 AM) Diastolic Blood Pressure [60-90 mmHg] 18 BRMIN (05/27/14 2:30 PM) 18 BRMIN (05/27/14 8:24 AM) Respiratory Rate [14-20 BRMIN] 89 bpm (05/27/14 2:30 PM) 92 bpm (05/27/14 1:20 PM) 89 bpm (05/27/14 11:05 AM) Peripheral Pulse Rate [60-100 bpm] 81.818 kg (05/27/14 8:24 AM) Weight 30.96 m2 (05/27/14 8:24 AM) Body Mass Index Problem List Condition Effective Dates Status Health Status Informant Back pain(Confirmed) Resolved Allergies, Adverse Reactions, Alerts Substance Reaction Severity Status NKDA Active Medications morphine Sulfate 4 mg, Route: IVP, Drug form: INJ, ONCE, Dosing Weight 81.818, kg, Priority: STAT , Start date: 05/27/14 11:04:00, Stop date: 05/27/14 11:04:00 Start Date: 05/27/14 Stop Date: 05/27/14 Status: Completed Omnipaque 350mg/ml 75 mL, Route: IVP, Drug Form: SOLN, Dosing Weight 81.818, kg, ONCALL, STAT, Star t date: 05/27/14 10:24:00, Duration: 1 doses or times, Dose=2.2ml/kg, Max dose= 100ml -- "To be infused by Radiology Staff ONLY" Special Instructions: Dose=2.2ml/kg, Max odrh=657vg -- "To be infused by Radiol ogy Staff ONLY" Start Date: 05/27/14 Stop Date: 05/27/14 Status: Completed Saline Flush 0.9% 5 mL, Route: IVP, Drug Form: INJ, Dosing Weight 81.818, kg, PRN, PRN Line Flush, Start date: 05/27/14 9:08:00, Duration: 30 day, Stop date: 06/26/14 9:07:00 Notes: (Same as: BD Posiflush) Start Date: 05/27/14 Stop Date: 05/27/14 Status: Discontinued Sodium Chloride 0.9% (Bolus) IV 1,000 mL, 1,000 ml/hr, Infuse Over: 1 hr, Route: IV, 1,000, Drug form: INJ, ONCE , Priority: STAT, Dosing Weight 81.818 kg, Start date: 05/27/14 9:08:00, Duratio n: 1 doses or times, Stop date: 05/27/14 9:08:00 Start Date: 05/27/14 Stop Date: 05/27/14 Status: Completed Sodium Chloride 0.9% IV 1,000 mL 1,000 mL, Rate: 125 ml/hr, Infuse over: 8 hr, Route: IV, Dosing Weight 81.818 kg , Total Volume: 1,000, Start date: 05/27/14 9:08:00, Duration: 30 day, Stop date : 06/26/14 9:07:00 Start Date: 05/27/14 Stop Date: 05/27/14 Status: Discontinued tramadol 50 mg oral tablet 50 mg, Route: PO, Drug form: TAB, ONCE, Dosing Weight 81.818, kg, Priority: STAT , Start date: 05/27/14 13:26:00, Stop date: 05/27/14 13:26:00 Start Date: 05/27/14 Stop Date: 05/27/14 Status: Completed Results ELECTROLYTES Most recent to 1 oldest [Reference Range]: Sodium Lvl [135-145 136 mEq/L mEq/L] (05/27/14 9:18 AM) Potassium Lvl 3.5 mEq/L [3.5-5.1 mEq/L] (05/27/14 9:18 AM) Chloride Lvl [95-109 103 mEq/L mEq/L] (05/27/14 9:18 AM) CO2 [24-32 mEq/L] 21 mEq/L *LOW* (05/27/14 9:18 AM) AGAP [10.0-20.0 15.5 mEq/L mEq/L] (05/27/14 9:18 AM) CHEM PANEL Most recent to 1 oldest [Reference Range]: Creatinine Lvl 1.0 mg/dL [0.5-1.4 mg/dL] (05/27/14 9:18 AM) eGFR 64 mL/min/1.73m2 1 *NA* (05/27/14 9:18 AM) BUN [7-22 mg/dL] 20 mg/dL (05/27/14 9:18 AM) B/C Ratio [6-25] 20 (05/27/14 9:18 AM) Glucose Lvl [70-99 94 mg/dL 2 mg/dL] (05/27/14 9:18 AM) Total Protein 7.1 g/dL [6.4-8.4 g/dL] (05/27/14 9:18 AM) Albumin Lvl [3.5-5.0 3.6 g/dL g/dL] (05/27/14 9:18 AM) Globulin [2.0-4.0 3.5 g/dL g/dL] (05/27/14 9:18 AM) A/G Ratio [0.7-1.6] 1.0 (05/27/14 9:18 AM) Calcium Lvl 8.3 mg/dL [8.5-10.5 mg/dL] *LOW* (05/27/14 9:18 AM) ALT [0-65 unit/L] 45 unit/L (05/27/14 9:18 AM) AST [0-37 unit/L] 28 unit/L (05/27/14 9:18 AM) Alk Phos [39-136 101 unit/L unit/L] (05/27/14 9:18 AM) Bili Total [0.2-1.3 0.5 mg/dL mg/dL] (05/27/14 9:18 AM) 1Result Comment: The eGFR is calculated using [...] from the National Kidney Disease Education Program ( NKDEP) which additionally recommends that when the eGFR is used in patients with extremes of body mass index for purposes of drug dosing, the eGFR should be mul tiplied by the estimated BMI. 2Interpretive Data: Adult reference range values reflect the clinical guidelines of the [place] [employer]. CARDIAC ENZYMES Most recent to 1 oldest [Reference Range]: Total CK [12-191 85 unit/L unit/L] (05/27/14 9:18 AM) Troponin-I <0.02 ng/mL [0.00-0.40 ng/mL] (05/27/14 9:18 AM) DRUG SCREEN Most recent to 1 oldest [Reference Range]: U Amph Scr Negative [Negative] *NA* (05/27/14 9:18 AM) U Jessica Scr Negative [Negative] *NA* (05/27/14 9:18 AM) U Benzodia Scr Negative [Negative] *NA* (05/27/14 9:18 AM) U Cocaine Scr Negative [Negative] *NA* (05/27/14 9:18 AM) U Opiate Scr Positive [Negative] *ABN* (05/27/14 9:18 AM) U Phencyc Scr Negative [Negative] *NA* (05/27/14 9:18 AM) U Cannab Scr Negative [Negative] *NA* (05/27/14 9:18 AM) UDS Note See Note 3 (05/27/14 9:18 AM) 3Interpretive Data: Drugs reported as positive have [...] Methadone 300 ng/mL Urine alcohol 20 mg/dL TOXICOLOGY Most recent to 1 oldest [Reference Range]: Etoh (%) <0.003 % 4 (05/27/14 9:18 AM) Ethanol Lvl <3.0 mg/dL 5 (05/27/14 9:18 AM) 4Interpretive Data: Ethanol testing results should be used for medical purposes only. Negative Range: <0.003% Toxic Range: >0.25% 5Interpretive Data: Negative Range: <3 mg/dL Toxic Range: >250 mg/dL URINE AND STOOL Most recent to 1 oldest [Reference Range]: UA Turbidity [Clear] Clear (05/27/14 9:18 AM) UA Color [Yellow] Yellow *NA* (05/27/14 9:18 AM) UA pH [5.0-8.0] 5.5 (05/27/14 9:18 AM) UA Spec Grav 1.020 [<=1.030] (05/27/14 9:18 AM) UA Glucose [Negative Negative mg/dL mg/dL] (05/27/14 9:18 AM) UA Blood [Negative] Negative (05/27/14 9:18 AM) UA Ketones [Negative Negative mg/dL mg/dL] *NA* (05/27/14 9:18 AM) UA Protein [Negative Negative mg/dL mg/dL] (05/27/14 9:18 AM) UA Urobilinogen 0.2 EU/dL [0.1-1.0 EU/dL] (05/27/14 9:18 AM) UA Bili [Negative] Negative *NA* (05/27/14 9:18 AM) UA Leuk Est Negative [Negative] (05/27/14 9:18 AM) UA Nitrite Negative [Negative] (05/27/14 9:18 AM) UA WBC [None Seen 6-10 /HPF /HPF] *ABN* (05/27/14 9:18 AM) UA Bacteria [None Occasional /HPF Seen /HPF] (05/27/14 9:18 AM) UA Sq Epi [Few /LPF] Occasional /LPF (05/27/14 9:18 AM) HEMATOLOGY Most recent to 1 oldest [Reference Range]: WBC [3.7-10.4 K/CMM] 6.5 K/CMM (05/27/14 9:18 AM) RBC [4.20-5.40 3.56 M/CMM M/CMM] *LOW* (05/27/14 9:18 AM) Hgb [12.0-16.0 g/dL] 11.6 g/dL *LOW* (05/27/14 9:18 AM) Hct [36.0-48.0 %] 33.1 % *LOW* (05/27/14 9:18 AM) MCV [81.0-99.0 fL] 92.8 fL (05/27/14 9:18 AM) MCH [27.0-31.0 pg] 32.4 pg *HI* (05/27/14 9:18 AM) MCHC [32.0-36.0 34.9 g/dL g/dL] (05/27/14 9:18 AM) RDW [11.5-14.5 %] 13.1 % (7/27/14 9:18 AM) Platelet [133-450 197 K/CMM K/CMM] (05/27/14 9:18 AM) MPV [7.4-10.4 fL] 7.8 fL (05/27/14 9:18 AM) Segs [45.0-75.0 %] 32.0 % *LOW* (05/27/14:18 AM) Lymphocytes 51.4 % [20.0-40.0 %] *HI* (05/27/14:18 AM) Monocytes [2.0-12.0 13.5 % %] *HI* (05/27/14:18 AM) Eosinophils [0.0-4.0 3.0 % %] (05/27/14 9:18 AM) Basophils [0.0-1.0 0.1 % %] (05/27/14 9:18 AM) Segs-Bands # 2.1 K/CMM [1.5-8.1 K/CMM] (05/27/14 9:18 AM) Lymphocytes # 3.3 K/CMM [1.0-5.5 K/CMM] (05/27/14 9:18 AM) Monocytes # [0.0-0.8 0.9 K/CMM K/CMM] *HI* (05/27/14 9:18 AM) Eosinophils # 0.2 K/CMM [0.0-0.5 K/CMM] (05/27/14 9:18 AM) Basophils # [0.0-0.2 0.0 K/CMM K/CMM] (05/27/14 9:18 AM) PT [12.0-14.7 14.1 seconds seconds] (05/27/14 9:18 AM) INR [0.85-1.17] 1.10 6 (05/27/14 9:18 AM) PTT [22.9-35.8 26.0 seconds 7 seconds] (05/27/14 9:18 AM) 6Interpretive Data: RECOMMENDED RANGES FOR PROTIME INR: 2.0-3.0 for most medical and surgical thromboembolic states. 2.5-3.5 for artificial heart valves and recurrent embolism. INR SHOULD BE USED ONLY FOR PATIENTS ON STABLE ANTICOAGULANT THERAPY. 7Interpretive Data: Heparin Therapeutic Range: 57 - 92 Seconds Medications Administered During Your Visit No data available for this section Immunizations No data available for this section
--- OUTSIDE RECORDS SUMMARY | 2018-10-11 10:47 | XMS REPORT ---
Author Author Bernie Castro Organization [employer] Address Unknown Phone Unavailable Care Team Providers Care Waiter/Waitress Captain Name Role Phone Bernie Castro CP Unavailable Encounters Encounter Location Date Follow up Rheumatology Clinic Dec 28, 2016 ZORVOLEX-TO EXPENSIVE/Meloxicam/Leflunomide - FYI [facility] December 30, 2016 Problems Problem Type Condition ICD-9 Code Onset Dates Condition Status Problem Rheumatoid arthritis of left hand without organ or system involvement with positive rheumatoid factor M05.742 Active Problem Lumbago 724.2 Active Problem Rheumatoid arthritis with rheumatoid factor of right hand without organ or systems involvement M05.741 Active Problem Rheumatoid arthritis 714.0 Active Medications Medication Code System Code Instructions Start Date End Date Status Dosage Meloxicam MEDISPAN [address]-59 15 MG Orally Once a day prn with food December 31, 2016 April 30, 2017 Active 1 tablet Leflunomide MED[facility]AN [address]-60 20 MG Orally Once a day December 31, 2016 April 30, 2017 Active 1 tablet Social History Social History Element Qualifiers Date Reported IV Drug abuse no. Dec 28, 2016 Smoking status: . Are you a: Former Smoker Dec 28, 2016 alcohol no. Dec 28, 2016 Summary Purpose eClinicalWorks Submission
--- OUTSIDE RECORDS SUMMARY | 2018-10-11 10:47 | XMS REPORT ---
Author Author Bernie Castro Organization [employer] Address Unknown Phone Unavailable Care Team Providers Care Insulation Installer Name Role Phone Bernie Castro CP Unavailable [...] Active Problem Rheumatoid arthritis 714.0 Active Medications No Known Medications Vital Signs Date/Time: Jun 02, 2017 Height 65.5 in Blood Pressure Diastolic 88 mm Hg Blood Pressure Systolic 114 mm Hg Weight 202 lbs Results No Known Results Summary Purpose eClinicalWorks Submission
--- OUTSIDE RECORDS SUMMARY | 2018-10-11 10:47 | XMS REPORT ---
Author Author Bernie Castro Organization e[employer] Address Unknown Phone Unavailable Care Team Providers Care Theater Set Production Designer Name Role Phone Bernie Castro CP Unavailable Allergies, Adverse Reactions, Alerts Substance Reaction Event Type N.K.D.A. Info Not Available Non Drug Allergy Problems Problem Type Condition Code Onset Dates Condition Status Assessment Chronic pain G89.29 Active Assessment Rheumatoid arthritis with rheumatoid factor of right hand without organ or systems involvement M05.741 Active Assessment High risk medication use Z79.899 Active Problem Peripheral neuropathy, idiopathic G60.9 Active Problem Rheumatoid arthritis with rheumatoid factor of right hand without organ or systems involvement M05.741 Active Problem Chronic pain disorder G89.4 Active Problem Rheumatoid arthritis 714.0 Active Problem Rheumatoid arthritis of left hand without organ or system involvement with positive rheumatoid factor M05.742 Active Problem Lumbago 724.2 Active Assessment Trochanteric bursitis, left hip M70.62 Active Assessment Peripheral neuropathy, idiopathic G60.9 Active Assessment B12 deficiency E53.8 Active Assessment Pain, joint, multiple sites M25.50 Active Assessment Pain in left shoulder M25.512 Active Assessment Fibromyalgia M79.7 Active Medications Medication Code System Code Instructions Start Date End Date Status Dosage Escitalopram Oxalate [facility] 90765026135 20 MG Orally Once a day Active 0.5 tablet Estradiol [facility] 96981210797 0.05 MG/24HR Transdermal Two times a Week Active 1 patch to skin BusPIRone HCl [facility] 73626729140 15 MG Orally Twice a day Active 1 tablet Iron [facility] 08431673025 325 (65 Fe) MG Orally Once a day Active 1 tablet Trazodone HCl [facility] 91607941166 100 MG Orally Once a day Active 1 tablet at bedtime Fish Oil [facility] 91318773466 300 MG Orally Twice a day Active 1 capsule BuPROPion HCl [facility] 27106090400 100 MG Orally Once a day Active 1 tablet Folic Acid [facility] 27400330899 800 MCG Orally Once a day Active 1 tablet Oxybutynin Chloride [facility] 95523866881 5 MG Orally Twice a day Active 1 tablet Gabapentin [facility] 25798937705 400 MG Orally three times daily Active 1 capsule Cyanocobalamin [facility] [address]-31 1000 MCG Orally Once a day Active 1 tablet Sulindac [facility] 99146998373 200 MG Orally Twice a day Active 1 tablet with food Cyanocobalamin [facility] [address]-36 1000 MCG/ML subcutaneously once a week Oct 03, 2018 January 31, 2019 Active 1 ml shot Hair/Skin/Nails [facility] 45837339685 Orally Active as directed Xeljanz [facility] 51148592268 5 mg Orally bid Active 1 tab(s) Quetiapine Fumarate [facility] 67419897514 200 MG Orally Once a day Active 1 tablet BuPROPion HCl (XL) [facility] 67027373721 300 MG Orally Once a day Active 1 tablet in the morning B-12 Compliance Injection [facility] 69820287165 1000 MCG/ML Injection Active 1 ml Medrol [facility] 77850823626 4 MG Orally Once a day March 22, 2018 Active as directed Pravastatin Sodium [facility] 37227124801 20 MG Orally Once a day Active 1 tablet Pantoprazole Sodium [facility] 34108117896 20 MG Orally Once a day Active 2 tablets One Daily Womens 50+ [facility] 06160445900 - Orally Active as directed Lamotrigine [facility] 65365120009 100 MG Orally Twice a day Active 2 tablets Vital Signs Date/Time: Oct 03, 2018 Height 65.5 in Blood Pressure Diastolic 87 mm Hg Blood Pressure Systolic 133 mm Hg Weight 200.6 lbs Results No Known Results Summary Purpose [employer]ClinicalWorks Submission
--- OUTSIDE RECORDS SUMMARY | 2018-10-11 10:47 | XMS REPORT ---
Author Author Bernie Castro Organization [employer] Address Unknown Phone Unavailable Care Team Providers Care Set And Exhibit Designer Name Role Phone Bernie Castro CP [...]
--- OUTSIDE RECORDS SUMMARY | 2018-10-11 10:47 | XMS REPORT ---
Author Author Bernie Castro [facility] [employer] Address Unknown Phone Unavailable Care Team Providers Care International Relations Teacher Name Role Phone Bernie Castro CP Unavailable Allergies No Known Allergies Problems Problem Type Condition Code Onset Dates Condition Status Assessment Stiffness of left wrist joint M25.632 Active Assessment Swelling of joint, wrist, left M25.432 Active Problem Peripheral neuropathy, idiopathic G60.9 Active Problem Rheumatoid arthritis with rheumatoid factor of right hand without organ or systems involvement M05.741 Active Problem Chronic pain disorder G89.4 Active Problem Rheumatoid arthritis 714.0 Active Assessment Pain in left wrist M25.532 Active Problem Rheumatoid arthritis of left hand without organ or system involvement with positive rheumatoid factor M05.742 Active Problem Lumbago 724.2 Active Medications Medication Code System Code Instructions Start Date End Date Status Dosage Escitalopram Oxalate [facility] 05569848137 20 MG Orally Once a day Active 0.5 tablet Gabapentin ND 42913458991 300 MG Orally tid Active 1 cap(s) Folic Acid [facility] 94491173570 800 MCG Orally Once a day Active 1 tablet Hair/Skin/Nails [facility] 36664280257 Orally Active as directed Fish Oil ND 19738199363 300 MG Orally Twice a day Active 1 capsule Zorvolex [facility] 80355061231 35 MG Orally Twice a day January 04, 2018 May 04, 2018 Active 1 tab(s) with food as needed Xeljanz [facility] 81928183414 5 mg Orally bid January 04, 2018 Active 1 tab(s) B-12 Compliance Injection [facility] 77764717730 1000 MCG/ML Injection Active 1 ml Lamotrigine ND 97504237568 100 MG Orally Twice a day Active 2 tablets BuPROPion HCl ND 37392691739 100 MG Orally Once a day Active 1 tablet Pantoprazole Sodium ND 19287709327 20 MG Orally Once a day Active 2 tablets Trazodone HCl ND 85119301914 100 MG Orally Once a day Active 1 tablet at bedtime Vital Signs Date/Time: March 22, 2018 Height 65.5 in Blood Pressure Diastolic 81 mm Hg Blood Pressure Systolic 118 mm Hg Weight 189 lbs Results No Known Results Summary Purpose eClinicalWorks Submission
--- OUTSIDE RECORDS SUMMARY | 2018-10-11 10:47 | XMS REPORT ---
Author Author Bernie Castro Organization [employer] Address Unknown Phone Unavailable Care Team Providers Care Manager Medicare Name Role Phone Bernie Castro CP Unavailable [...] Date End Date Status Dosage Escitalopram Oxalate [facility] [address]-92 20 MG Orally Once a day Active 0.5 tablet Hair/Skin/Nails [facility] 67570-[address]94 Orally Active as directed Leflunomide [facility] [address]-19 20 MG Orally Once a day December 31, 2016 April 30, 2017 Active 1 tablet Fish Oil [facility] [address]-93 300 MG Orally Twice a day Active 1 capsule Zorvolex [facility] [address]-06 35 MG Orally bid prn with food Dec 28, 2016 April 27, 2017 Inactive 1 capsule Duloxetine HCl [facility] [address]-08 60 MG Orally Once a day February 25, 2017 Active 1 capsule Folic Acid [facility] [address]-81 800 MCG Orally Once a day Active 1 tablet B-12 Compliance Injection [facility] [address]-76 1000 MCG/ML Injection Active 1 ml Lamotrigine [facility] [address]-22 100 MG Orally Twice a day Active 2 tablets Meloxicam [facility] [address]-18 15 MG Orally Once a day prn with food December 31, 2016 April 30, 2017 Inactive 1 tablet Vivlodex [facility] [address]-85 10 MG Orally Once a day February 25, 2017 Jun 25, 2017 Active 1 capsule Trazodone HCl [facility] [address]-71 100 MG Orally Once a day Active 1 tablet at bedtime Gabapentin [facility] [address]-23 100 MG Orally Active not defined Vital Signs Date/Time: February 25, 2017 Height 65.5 in Blood Pressure Diastolic 83 mm Hg Blood Pressure Systolic 127 mm Hg Weight 202 lbs Results No Known Results Summary Purpose eClinicalWorks Submission
--- OUTSIDE RECORDS SUMMARY | 2018-10-11 10:47 | XMS REPORT ---
Author Author Bernie Castro [facility] eClinicalWorks Address Unknown Phone Unavailable Care Team Providers Care Wig Maker Name Role Phone Bernie Castro CP Unavailable Allergies, Adverse Reactions, Alerts Substance Reaction Event Type N.K.D.A. Info Not Available Non Drug Allergy Problems Problem Type Condition Code Onset Dates Condition Status Assessment Fibromyalgia M79.7 Active Assessment High risk medication use Z79.899 Active Assessment Chronic pain G89.29 Active Problem Peripheral neuropathy, idiopathic G60.9 Active [...] M05.742 Active Problem Lumbago 724.2 Active Assessment Pain in left shoulder M25.512 Active Assessment Trochanteric bursitis, left hip M70.62 Active Assessment Peripheral neuropathy, idiopathic G60.9 Active Assessment Pain, joint, multiple sites M25.50 Active Medications Medication Code System Code Instructions Start Date End Date Status Dosage Xeljanz [facility] 77546288483 5 mg Orally bid Active 1 tab(s) BuPROPion HCl [facility] 61898561421 100 MG Orally Once a day Active 1 tablet B-12 Compliance Injection [facility] 87782064340 1000 MCG/ML Injection Active 1 ml Fish Oil [facility] 23864491298 300 MG Orally Twice a day Active 1 capsule Trazodone HCl ND 63485587235 100 MG Orally Once a day Active 1 tablet at bedtime Hair/Skin/Nails [facility] 31068206680 Orally Active as directed Pantoprazole Sodium [facility] 34353759148 20 MG Orally Once a day Active 2 tablets Lamotrigine ND 29911250215 100 MG Orally Twice a day Active 2 tablets Escitalopram Oxalate [facility] 66586912498 20 MG Orally Once a day Active 0.5 tablet Gabapentin [facility] 09718048668 300 MG Orally tid Inactive 1 cap(s) Gabapentin [facility] 45079678649 400 MG Orally three times daily May 05, 2018 Active 1 capsule Medrol [facility] 59929806380 4 MG Orally Once a day March 22, 2018 Active as directed Folic Acid [facility] 96948474580 800 MCG Orally Once a day Active 1 tablet Vital Signs Date/Time: May 05, 2018 Height 65.5 in Blood Pressure Diastolic 97 mm Hg Blood Pressure Systolic 124 mm Hg Weight 205.6 lbs Results No Known Results Summary Purpose eClinicalWorks Submission
--- OUTSIDE RECORDS SUMMARY | 2018-10-11 10:47 | XMS REPORT ---
Author Author Bernie Castro Organization [employer] Address Unknown Phone Unavailable Care Team Providers Care Felled Seam Operator Chainstitch Name Role Phone Bernie Castro CP Unavailable [...]
--- OUTSIDE RECORDS SUMMARY | 2018-10-11 10:47 | XMS REPORT ---
Author Author Bernie Castro [facility] eClinicalWorks Address Unknown Phone Unavailable Care Team Providers Care Label Drier Name Role Phone Bernie Castro CP Unavailable Allergies No Known Allergies Problems Problem Type Condition Code Onset Dates Condition Status Assessment Stiffness of right wrist joint M25.631 Active Problem Peripheral neuropathy, idiopathic G60.9 Active Problem Rheumatoid arthritis with rheumatoid factor of right hand without organ or systems involvement M05.741 Active Problem Chronic pain disorder G89.4 Active Problem Rheumatoid arthritis 714.0 Active Assessment Pain in right wrist M25.531 Active Problem Rheumatoid arthritis of left hand without organ or system involvement with positive rheumatoid factor M05.742 Active Problem Lumbago 724.2 Active Medications Medication Code System Code Instructions Start Date End Date Status Dosage Hair/Skin/Nails [facility] 08080341976 Orally Active as directed Folic Acid [facility] 23043094680 800 MCG Orally Once a day Active 1 tablet Zorvolex [facility] 66805837107 35 MG Orally Twice a day January 04, 2018 May 04, 2018 Active 1 tab(s) with food as needed Gabapentin ND 09086946663 300 MG Orally tid Active 1 cap(s) Xeljanz [facility] 89830713878 5 mg Orally bid January 04, 2018 Active 1 tab(s) B-12 Compliance Injection [facility] 68075408293 1000 MCG/ML Injection Active 1 ml Lamotrigine ND 49047310858 100 MG Orally Twice a day Active 2 tablets BuPROPion HCl ND 21691361964 100 MG Orally Once a day Active 1 tablet Pantoprazole Sodium ND 47055075938 20 MG Orally Once a day Active 2 tablets Fish Oil [facility] 94063197025 300 MG Orally Twice a day Active 1 capsule Trazodone HCl [facility] 91398578554 100 MG Orally Once a day Active 1 tablet at bedtime Escitalopram Oxalate ND 40494596821 20 MG Orally Once a day Active 0.5 tablet Vital Signs Date/Time: January 24, 2018 Height 65.5 in Blood Pressure Diastolic 81 mm Hg Blood Pressure Systolic 118 mm Hg Weight 189 lbs Results No Known Results Summary Purpose eClinicalWorks Submission
--- OUTSIDE RECORDS SUMMARY | 2018-10-11 10:47 | XMS REPORT ---
Author Author Bernie Castro Organization [employer] Address Unknown Phone Unavailable Care Team Providers Care Crew Leader/Control Room Operator Name Role Phone Bernie Castro CP Unavailable Allergies No Known Allergies Problems Problem Type Condition Code Onset Dates Condition Status Problem Rheumatoid arthritis with rheumatoid factor of right hand without organ or systems involvement M05.741 Active Problem Rheumatoid arthritis of left hand without organ or system involvement with positive rheumatoid factor M05.742 Active Problem Peripheral neuropathy, idiopathic G60.9 Active Problem Lumbago 724.2 Active Problem Rheumatoid arthritis 714.0 Active Medications No Known Medications Results No Known Results Summary Purpose eClinicalWorks Submission
--- OUTSIDE RECORDS SUMMARY | 2018-10-11 10:47 | XMS REPORT ---
Author Author Bernie Castro Organization [employer] Address Unknown Phone Unavailable Care Team Providers Care Database Report Writer Name Role Phone Bernie Castro CP Unavailable [...] Instructions Start Date End Date Status Dosage Sulindac NDC 51105211115 200 MG Orally Twice a day January 25, 2018 Active 1 tab(s) with food as needed Zorvolex ND 93362166428 35 MG Orally Twice a day January 04, 2018 May 04, 2018 Inactive 1 tab(s) with food as needed Sulindac NDC 41195744037 200 MG Orally Twice a day January 26, 2018 Jul 25, 2018 Active 1 tablet with food Results No Known Results Summary Purpose eClinicalWorks Submission
--- OUTSIDE RECORDS SUMMARY | 2018-10-11 10:48 | XMS REPORT ---
Author Author [facility] Address Unknown Phone Unavailable Care Team Providers Care Crop Duster Helper Name Role Phone ELPIDIO MOSLEY Unavailable Unavailable Problems This patient has no known problems. Allergies, Adverse Reactions, Alerts This patient has no known allergies or adverse reactions. Medications This patient has no known medications. Results Test Description Test Time Test Comments Text Results Atomic Results Result Comments TISSUE EXAM 2017-08-24 09:53:00 Surgical Pathology Report Case: [id number] Authorizing Provider: Arnie Mosley, Collected: 08/23/2017 1345 Ordering Location: [facility] PERIOPERATIVE Received: 08/23/2017 1438 SERVICES Pathologist: Radha Rodriguez MD Specimens: A) - Disc C4-5 B) - Disc C5-6 A. DISC, C4-C5, DISCECTOMY: - FIBROCARTILAGENOUS TISSUE WITH DEGENERATIVE CHANGESB. DISC, C5-C6, DISCECTOMY: - FIBROCARTILAGENOUS TISSUE AND BONE WITH DEGENERATIVE CHANGES Signing Pathologist Direct Phone Line: [phone] signed by Radha Rodriguez MD on 08/24/2017 at 9:53 [id number] stenosisA. Disc C4-5; B. Disc C5-6Specimen A is received in fixative and designated as "disc C4-5" and consists of multiple white-ramos tissue fragments measuring 2.0 x 2.0 x 0. 5 cm in aggregate. The specimen is entirely submitted into A1. Specimen B is received in fixative and designated as "disc C5-6" and consists of multiple pink-ramos tissue fragments (2.0 x 2.0 x 0.5 cm). The specimen is entirely submitted into B1. MG/pl A-B: Performed [facility], Department of Pathology, [address] [place] [address], [facility], Department of Pathology, [address] [place] [address], [facility] [facility], Department of Pathology, [facility] [place] [address], [facility] IN OR/30 MINUTE INCREMENTS 2017-08-23 17:28:00 FINAL REPORT Intraoperative fluoroscopy. Clinical history: ACDF FINDINGS: Radiologist was not present for the exam. Fluoroscopy was not performed by the undersigned. An intraoperative verbal report was not requested. Fluoroscopy time: 0.4 minutes. Reference Air Kerma (Ka, r): 1.92 mGy.Total images: 7 Impression: Intraoperative exam as described above. Signed: Quinten Tomlinson Verified Date/Time: 08/23/2017 17:28:56 Reading Location: [facility] Radiology Reading Room E CULTURE 2017-08-19 07:48:00 CULTURE (BEAKER) (test bhhe=4471) >100,000 col/mL skin duglas URINALYSIS W/ [id number] 12:34:00* Test Item Value Reference Range Comments COLOR (BEAKER) (test phlw=249) Yellow CLARITY (BEAKER) (test hzqj=499) Slightly Cloudy SPECIFIC GRAVITY UA (BEAKER) (test dita=978) 1.010 1.001-1.035 PH UA (BEAKER) (test cpgu=708) 6.5 5.0-8.0 PROTEIN UA (BEAKER) (test qgdv=642) Negative Negative GLUCOSE UA (BEAKER) (test tula=849) Negative Negative KETONES UA (BEAKER) (test figx=749) Negative Negative BILIRUBIN UA (BEAKER) (test ytsg=798) Negative Negative BLOOD UA (BEAKER) (test juje=867) Negative Negative NITRITE UA (BEAKER) (test segr=477) Negative Negative LEUKOCYTE ESTERASE UA (BEAKER) (test fdjy=844) Small Negative UROBILINOGEN UA (BEAKER) (test egyo=617) 0.2 mg/dL 0.2-1.0 BACTERIA (BEAKER) (test lokx=226) Moderate RBC UA-MANUAL (BEAKER) (test rftz=4490) <5 /HPF WBC UA-MANUAL (BEAKER) (test scem=9666) 5-10 /HPF SQUAMOUS EPITHELIAL MANUAL (BEAKER) (test mwhf=0997) 5-10 /HPF SOURCE(BEAKER) (test mfno=8017) URINE [id number] 11:10:00* Test Item Value Reference Range Comments CULTURE (BEAKER) (test kdoh=9782) Ciprofloxacin (test code=7) Clindamycin (test code=10) Erythromycin (test code=4) Gentamicin (test code=18) Levofloxacin (test code=22) Linezolid (test code=40) Moxifloxacin (test code=36) Nitrofurantoin (test code=23) Oxacillin (test code=14) Rifampin (test code=43) Tetracycline (test code=2) Tigecycline (test vcim=654) Trimethoprim + Sulfamethoxazole (test code=47) Vancomycin (test code=13) CULTURE (BEAKER) (test wyia=1804) >100,000 col/mL Coagulase negative Staphylococcus PT/[id number] 11:45:00* Test Item Value Reference Range Comments PROTIME (BEAKER) (test dbys=051) 10.2 seconds 9.3-12.0 INR (BEAKER) (test qngp=690) 1.0 <=5.9 PARTIAL THROMBOPLASTIN TIME (BEAKER) (test cgmn=730) 24.0 seconds 23.0-35.0 RECOMMENDED COUMADIN/WARFARIN INR THERAPY RANGESSTANDARD DOSE: 2.0 - 3.0 Inclu hosea: PROPHYLAXIS for venous thrombosis, systemic embolization; TREATMENT for ishaan ous thrombosis and/or pulmonary embolus.HIGH RISK: Target INR is 2.5-3.5 for pat ients with mechanical heart valves.COMPREHENSIVE METABOLIC [id number] 16:17:00* Test Item Value Reference Range Comments TOTAL PROTEIN (BEAKER) (test koor=138) 7.9 gm/dL 6.0-8.5 ALBUMIN (BEAKER) (test jhjd=1344) 4.3 g/dL 3.5-5.0 ALKALINE PHOSPHATASE (BEAKER) (test qtpb=044) 110 U/L 30-115 BILIRUBIN TOTAL (BEAKER) (test bgwr=216) 0.4 mg/dL 0.1-1.2 SODIUM (BEAKER) (test nssx=885) 138 meq/L 135-148 POTASSIUM (BEAKER) (test hqqn=277) 4.0 meq/L 3.6-5.5 CHLORIDE (BEAKER) (test wart=432) 106 meq/L 98-106 CO2 (BEAKER) (test qqli=850) 21 meq/L 20-29 BLOOD UREA NITROGEN (BEAKER) (test glxd=932) 11 mg/dL 10-26 CREATININE (BEAKER) (test lwgh=543) 0.80 mg/dL 0.50-1.20 GLUCOSE RANDOM (BEAKER) (test oxsg=961) 82 mg/dL 70-110 CALCIUM (BEAKER) (test twah=242) 9.2 mg/dL 8.5-10.5 AST (SGOT) (BEAKER) (test hbvj=813) 23 U/L 5-40 ALT (SGPT) (BEAKER) (test pfmj=289) 30 U/L 5-50 EGFR (BEAKER) (test mggw=1495) 74 mL/min/1.73 sq m ESTIMATED GFR IS NOT ACCURATE CREATININE CLEARANCE IN PREDICTING GLOMERULAR FILTRATION RATE. ESTIMATED GFR IS NOT APPLICABLE FOR DIALYSIS PATIENTS. URINALYSIS W/ [id number] 16:14:00* Test Item Value Reference Range Comments COLOR (BEAKER) (test wqni=094) Yellow CLARITY (BEAKER) (test trnk=830) Clear SPECIFIC GRAVITY UA (BEAKER) (test luns=100) <= 1.001-1.035 PH UA (BEAKER) (test pope=300) 6.0 5.0-8.0 PROTEIN UA (BEAKER) (test bawf=644) Negative Negative GLUCOSE UA (BEAKER) (test ezef=320) Negative Negative KETONES UA (BEAKER) (test yuue=763) Negative Negative BILIRUBIN UA (BEAKER) (test fdta=464) Negative Negative BLOOD UA (BEAKER) (test clqx=655) Negative Negative NITRITE UA (BEAKER) (test cfwg=166) Negative Negative LEUKOCYTE ESTERASE UA (BEAKER) (test zvyn=332) Small Negative UROBILINOGEN UA (BEAKER) (test bawp=389) 0.2 mg/dL 0.2-1.0 BACTERIA (BEAKER) (test hzsm=120) Few RBC UA-MANUAL (BEAKER) (test pcfs=3814) <5 /HPF WBC UA-MANUAL (BEAKER) (test jvro=4586) 5-10 /HPF SQUAMOUS EPITHELIAL MANUAL (BEAKER) (test jyhb=6610) <5 /HPF SOURCE(BEAKER) (test tndk=3526) RAD, CHEST, 2 [id number] 16:04:00Reason for exam:->pre-opShould this be performed at the bedside?->NoFINAL REPORT Chest radiograph Clinical History: PreopComparison: September 2011Views: Two Chest x- ray:The cardiac and mediastinal silhouettes are unremarkable. There is no evidence of a pneumothorax. There is no evidence of a pleural effusion. There is no evidence of overt cardiac failure. The visible regional skeleton is intact. There is no evidence of a focal parenchymal opacity. Interval placement of a right subclavian Port-A-Cath. Interval resolution of a pneumoperitoneum Impression:No active cardiopulmonary disease. Signed: Tamara Giraldo Verified Date/Time: 08/11/2017 16:04:14 Reading Location: [facility] Radiology Reading Room W/PLT COUNT & AUTO [id number] 15:58:00* Test Item Value Reference Range Comments WHITE BLOOD CELL COUNT (BEAKER) (test qcby=331) 5.1 K/ L 4.0-10.0 RED BLOOD CELL COUNT (BEAKER) (test hesv=986) 4.18 M/ L 4.00-5.00 HEMOGLOBIN (BEAKER) (test scrw=973) 13.1 GM/DL 12.0-15.0 HEMATOCRIT (BEAKER) (test sfkm=497) 39.3 % 36.0-45.0 MEAN CORPUSCULAR VOLUME (BEAKER) (test srqh=214) 94.0 fL 82.0-99.0 MEAN CORPUSCULAR HEMOGLOBIN (BEAKER) (test gbth=457) 31.3 pg 27.0-33.0 MEAN CORPUSCULAR HEMOGLOBIN CONC (BEAKER) (test uxub=033) 33.3 GM/DL 32.0-36.0 RED CELL DISTRIBUTION WIDTH (BEAKER) (test ugxw=633) 13.4 % 10.3-14.2 PLATELET COUNT (BEAKER) (test ebjs=877) 212 K/CU MM 150-430 MEAN PLATELET VOLUME (BEAKER) (test gdtb=498) 7.8 fL 6.5-10.5 NUCLEATED RED BLOOD CELLS (BEAKER) (test yemq=860) 0 /100 WBC 0-0 NEUTROPHILS RELATIVE PERCENT (BEAKER) (test hfdc=842) 53 % LYMPHOCYTES RELATIVE PERCENT (BEAKER) (test ikmj=407) 32 % MONOCYTES RELATIVE PERCENT (BEAKER) (test hzau=418) 12 % EOSINOPHILS RELATIVE PERCENT (BEAKER) (test zdwr=048) 3 % BASOPHILS RELATIVE PERCENT (BEAKER) (test dfha=718) 0 % NEUTROPHILS ABSOLUTE COUNT (BEAKER) (test ggdu=045) 2.70 K/ L 1.80-8.00 LYMPHOCYTES ABSOLUTE COUNT (BEAKER) (test zakx=192) 1.60 K/ L 1.48-4.50 MONOCYTES ABSOLUTE COUNT (BEAKER) (test poxl=636) 0.60 K/ L 0.00-1.30 EOSINOPHILS ABSOLUTE COUNT (BEAKER) (test yebv=323) 0.10 K/ L 0.00-0.50 BASOPHILS ABSOLUTE COUNT (BEAKER) (test lzru=097) 0.00 K/ L 0.00-0.20
--- OUTSIDE RECORDS SUMMARY | 2018-10-11 10:48 | XMS REPORT ---
Author Author Bernie Castro Organization [employer] Address Unknown Phone Unavailable Care Team Providers Care Environmental Engineering Intern Name Role Phone Bernie Castro CP Unavailable Allergies, Adverse Reactions, Alerts Substance Reaction Event Type N.K.D.A. Info Not Available Non Drug Allergy Encounters Encounter Location Date Follow up Rheumatology Clinic Dec 28, 2016 Problems Problem Type Condition ICD-9 Code Onset Dates Condition Status Assessment Fibromyalgia M79.7 Active Assessment Pain, joint, multiple sites M25.50 Active Problem Rheumatoid arthritis of left hand without organ or system involvement with positive rheumatoid factor M05.742 Active Problem Lumbago 724.2 Active Problem Rheumatoid arthritis with rheumatoid factor of right hand without organ or systems involvement M05.741 Active Assessment High risk medication use Z79.899 Active Assessment Chronic pain G89.29 Active Problem Rheumatoid arthritis 714.0 Active Assessment Rheumatoid arthritis with rheumatoid factor of right hand without organ or systems involvement M05.741 Active Medications Medication Code System Code Instructions Start Date End Date Status Dosage CCP Caffeine Free [facility] [address]-10 Active Unknown Mirtazapine [facility] [address]-96 15 MG Orally Once a day Active Unknown Escitalopram Oxalate [facility] [address]-75 10 MG Orally Once a day Active 1 tablet Propranolol HCl [facility] [address]-64 20 MG Orally Three times a day Active 1 tablet Cyanocobalamin [facility] [address]-95 1000 MCG Orally Once a day Active 1 tablet Hair/Skin/Nails [facility] 26611-90268 Orally Active as directed Potassium [facility] [address]-93 99 MG Orally Once a day Active 1 tablet Sucralfate [facility] [address]-84 1 GM Orally Twice a day Active Unknown Gabapentin [facility] [address]-33 100 MG Orally add to 300 mg capsule to take total 400 mg TID Active 1 capsule Amoxicillin [facility] [address]-14 875 MG Orally Twice a day Active 1 tablet Duloxetine HCl [facility] [address]-48 60 MG Orally Once a day Aug 08, 2014 Active 1 capsule Fish Oil [facility] [address]-08 300 MG Orally Twice a day Active 1 capsule Folic Acid [facility] [address]-77 800 MCG Orally Once a day Active 1 tablet Echinacea [facility] 31221-84604 350 MG Orally Active as directed Cyclobenzaprine HCl [facility] [address]-56 5 MG Orally Three times a day Active 1 tablet Orencia [facility] [address]-65 250 MG Intravenous Aug 30, 2014 Active as directed Pantoprazole Sodium [facility] [address]-73 40 MG Orally Once a day Active 1 tablet Zorvolex [facility] [address]-11 35 MG Orally bid prn with food Dec 28, 2016 April 27, 2017 Active 1 capsule Alprazolam & Diet Manage Prod Unknown 0 0.5 MG Orally Active Unknown Tizanidine HCl [facility] [address]-84 4 MG Orally every 8 hrs Active 1 tablet as needed Quetiapine Fumarate [facility] [address]-45 200 MG Orally Once a day Active 1 tablet at bedtime Duloxetine HCl [facility] [address]-03 30 MG Orally Once a day Active 1 capsule Gabapentin [facility] [address]-19 400 MG Orally Three times a day Active 1 capsule Celebrex [facility] [address]-07 200 MG Orally Once a day Active 1 capsule Gabapentin [facility] [address]-62 300 MG Orally Three times a day Sep 17, 2014 Active 1 capsule Lyrica [facility] [address]-19 50 MG Orally Three times a day Active 1 capsule Savella [facility] [address]-92 50 MG Orally Twice a day Active 1 tablet Tramadol HCl [facility] [address]-81 50 MG Orally every 6 hrs Active 1 tablet as needed Metoclopramide HCl [facility] [address]-65 10 MG Orally Active Unknown Pantoprazole Sodium [facility] [address]-26 40 MG Orally Once a day Aug 08, 2014 Active 1 tablet Social History Social History Element Qualifiers Date Reported IV Drug abuse no. Dec 28, 2016 Smoking status: . Are you a: Former Smoker Dec 28, 2016 alcohol no. Dec 28, 2016 Family history Qualifier Description Comment Date Reported Maternal Grand Mother Comment not available Dec 28, 2016 Siblings Comment not available Dec 28, 2016 Children Comment not available Dec 28, 2016 . Comment not available Dec 28, 2016 Maternal aunt Comment not available Dec 28, 2016 Mother Comment not available Dec 28, 2016 Paternal uncle Comment not available Dec 28, 2016 Maternal uncle Comment not available Dec 28, 2016 Paternal aunt Comment not available Dec 28, 2016 Father Comment not available Dec 28, 2016 Paternal Grand Mother Comment not available Dec 28, 2016 Maternal Grand Father Comment not available Dec 28, 2016 Paternal Grand Father Comment not available Dec 28, 2016 Vital Signs Date/Time: Dec 28, 2016 Height 65.5 in Blood Pressure Diastolic 99 mm Hg Blood Pressure Systolic 137 mm Hg Weight 209.4 lbs Summary Purpose [employer] Submission
[2018-10-11 15:40] VITALS: BP 132/88
== END | disposition home or self-care (01) ==
LOC: OR 10:43
PROVIDERS: ATTEND Internal Medicine Gastroenterology
DX: Z12.11 Encounter for screening for malignant neoplasm of colon (principal); K29.70 Gastritis, unspecified, without bleeding; K20.9 Esophagitis, unspecified; K57.30 Diverticulosis of large intestine without perforation or abscess without bleeding; K64.8 Other hemorrhoids; K44.9 Diaphragmatic hernia without obstruction or gangrene; K58.9 Irritable bowel syndrome, unspecified; K59.00 Constipation, unspecified; Z98.890 Other specified postprocedural states; M06.9 Rheumatoid arthritis, unspecified; D64.9 Anemia, unspecified; E78.5 Hyperlipidemia, unspecified; F32.9 Major depressive disorder, single episode, unspecified; F41.9 Anxiety disorder, unspecified; Z88.6 Allergy status to analgesic agent; Z68.34 Body mass index [BMI] 34.0-34.9, adult; Z86.718 Personal history of other venous thrombosis and embolism; Z87.891 Personal history of nicotine dependence; Z80.0 Family history of malignant neoplasm of digestive organs
CPT/HCPCS: 43239; 45378; J1610; J2250

== ENCOUNTER 2018-10-19 08:48 | Observation (INO) | payer MEDICARE ==
[~2018-10-19] VITALS: Ht 165.1 cm; Wt 87.2 kg
[~2018-10-19 08:48] MED LIST changes: -FENTANYL CITRATE/PF 100MCG/2 ML INJ ONE; -GLUCAGON FOR INJ 1 MG VIAL ONE; -MIDAZOLAM HCL 2 MG/2 ML VIAL ONE; -PROPOFOL IV EMULSION 10 MG/ML 50 ML VIAL ONE
--- OUTSIDE RECORDS SUMMARY | 2018-10-19 08:51 | XMS REPORT | Clinical Summary ---
Author Author [facility] Address Unknown Phone Unavailable Care Team Providers Care Air Brush Operator Name Role Phone Lianariley Brian Dyer PCP [...] Type Area Manufactur er 12/30/2021 APS-5440 / [id number] / [id number] Amniofix 4x4cm Aps-5440 - Cement/Jameson N/A: Neck MIMEDX [id number] ler/[employer] Implanted: Qty: 1 on 08/23/2017 by Arnie Pérez MD 12/01/2021 [id number] / [id number] / [id number] Actifuse Shape Bone Graft N/A: Neck APATECH Implanted: Qty: 1 on 08/23/2017 by Arnie Mosley MD [id number] / [id number] / [id number] 5 Cage N/A: Neck ORTHOFIX Implanted: Qty: 2 on 08/23/2017 by Arnie Moon MD / / Cetra Plate N/A: Neck ORTHOFIX Implanted: Qty: 1 on 08/23/2017 by Arnie Moon MD / / [id number] Drilling Screw N/A: Neck ORTHOFIX Implanted: Qty: 4 on 08/23/2017 by Arnie Moon MD [id number] / / Drilling Constrained Screw N/A: Neck ORTHOFIX Implanted: Qty: 2 on 08/23/2017 by Arnie Moon MD Results Not on fileafter 10/18/2017 Insurance Payer Benefit Subscriber ID Type Phone Address Plan / Group CARE IMPROVEMENT MEDICARE CARE xxxxxxxxx [facility] Advance Directives For more information, please contact: [address] [address] Date Inactivated Comments Code Status Date Activated 08/24/2017 8:47 PM Full Code 08/23/2017 3:59 PM This code status was determined by: Patient
--- OUTSIDE RECORDS SUMMARY | 2018-10-19 08:51 | XMS REPORT | Clinical Summary ---
Author Author [employer] Organization [facility] Address Unknown Phone Unavailable Care Team Providers Care Foreign Trade Teacher Name Role Phone Brian Rogers MD PCP Allergies Not on File Medications Not on file Active Problems Not on file Encounters Care Team Description Date Type Specialty Lola Amaral MD Abdominal pain, generalized 09/26/2018 Hospital Radiology Encounter Lola Amaral MD Abdominal pain, generalized (Primary Dx) 09/19/2018 Transcribe Access Orders after 10/18/2017 Social History Date Tobacco Use Types Packs/Day [...] CANCER SCREENING 1982 COLON CANCER SCREENING 2011 SHINGLES VACCINES (1 of 2011 2) BREAST CANCER SCREENING 04/13/2016 04/13/2014, 03/24/2013 INFLUENZA VACCINE 06/01/2018 Procedures Comments Procedure Name Priority Date/Time Associated Diagnosis ESTIMATED GFR Routine 09/26/2018 1:07 PM DIRECTOR OF STUDENT FINANCIAL SERVICES POC CREATININE Routine 09/26/2018 1:07 PM DIRECTOR OF STUDENT FINANCIAL SERVICES CT ABDOMEN PELVIS W WO Routine 09/26/2018 Abdominal pain, CONTRAST 12:29 PM DIRECTOR OF STUDENT FINANCIAL SERVICES generalized after 10/18/2017 Results * Estimated GFR (09/26/2018 1:07 PM DIRECTOR OF STUDENT FINANCIAL SERVICES) Estimated GFR 56 (A) mL/min/1.73 m2 [facility] Comment: [facility] CatergoryUnitsInte rpretation G1 >=90 Normal or high G2 60-89Mildly decreased K2a94-60 Mildly to moderately decreased X4p04-45 Moderately to severely decreased G4 15-29Severely decreased G5 <15Kidney failure The eGFR was calculated using the Chronic Kidney Disease Epidemiology Collaboration (CKD-EPI) equation. Interpretation is based on recommendations of the National Kidney Foundation-Kidney Disease Outcomes Quality Initiative (NKF-KDOQI) published in 2014. Specimen Blood Performing Organization Address [facility] [place] [address] PATHOLOGY AND GENOMIC MEDICINE [address] * POC creatinine (09/26/2018 1:07 PM DIRECTOR OF STUDENT FINANCIAL SERVICES) POC creatinine 1.1 (H) 0.5 - 0.9 mg/dl [facility] Comment: [facility] Meter ID: [id number] Proof Passer: Millie Peterson Specimen Blood Performing Organization Address [facility] [place] [address] PATHOLOGY AND GENOMIC MEDICINE [address] * CT Abdomen Pelvis W Wo Contrast (09/26/2018 12:29 PM DIRECTOR OF STUDENT FINANCIAL SERVICES) Narrative Performed At EXAMINATION:CT ABDOMEN PELVIS W [...] 1 left renal cyst. Unremarkable exam otherwise. [id number] Procedure Note Hm Interface, Radiology Results Incoming - 09/26/2018 12:51 PM DIRECTOR OF STUDENT FINANCIAL SERVICES EXAMINATION: CT ABDOMEN PELVIS W WO CONTRAST [...] 1 left renal cyst. Unremarkable exam otherwise. [id number] Performing Organization Address City/State/Zipcode Phone Number [facility] [address] [place] [address] after 10/18/2017 Insurance Payer Benefit Subscriber ID Type Phone Address Plan / Group UHC MEDICARE UNITEDHC xxxxxxxxx O [employer] (Home) [place] [address] Advance Directives Patient has advance care planning documents on file. For more information, plesandip e contact: Joey Woods [address] [place] [address]
[2018-10-19] MEDS ORDERED: BUPIVACAINE 0.25%/EPI 30ML SDV INJ ONE (09:21)
[2018-10-19] MEDS ORDERED: MIDAZOLAM 2MG/1ML ORAL LIQUID ONE (09:43)
[2018-10-19 10:07] LABS: BASOPHILS % 0.5 % (0.0-1.0); EOSINOPHILS # (AUTO) 0.1 (0.0-0.4); EOSINOPHILS % 1.9 % (0.0-6.0); HEMATOCRIT 34.6 % (34.2-44.1); HEMOGLOBIN 11.4 g/dL (12.0-16.0); LYMPHOCYTES # (AUTO) 2.4 (1.0-3.2); LYMPHOCYTES % 37.6 % (18.0-39.1); MEAN CORPUSCULAR HEMOGLOBIN 32.1 pg (28-32); MEAN CORPUSCULAR HGB CONC 32.9 g/dL (31-35); MEAN CORPUSCULAR VOLUME 97.5 fL (81-99); MONOCYTES # (AUTO) 0.8 (0.2-0.8); MONOCYTES % 11.6 % (4.4-11.3); NEUTROPHILS # (AUTO) 3.1 (2.1-6.9); NEUTROPHILS % 47.3 % (38.7-80.0); PLATELET COUNT 230 x10e3/uL (140-360); RED BLOOD COUNT 3.55 x10e6/uL (3.6-5.1); RED CELL DISTRIBUTION WIDTH 13.1 % (11.7-14.4)
[2018-10-19 10:13] LABS: INR 0.91; PROTHROMBIN TIME 13.1 seconds (11.9-14.5)
[2018-10-19 10:14] LABS: PARTIAL THROMBOPLASTIN TIME 26.5 seconds (23.8-35.5)
[2018-10-19 10:20] LABS: ALANINE AMINOTRANSFERASE 17 IU/L (0-55); ALBUMIN 3.8 g/dL (3.5-5.0); ALKALINE PHOSPHATASE 81 IU/L (40-150); ANION GAP 14.6 mmol/L (8-16); BLOOD UREA NITROGEN 16 mg/dL (7-26); BUN/CREATININE RATIO 19 (6-25); CALCIUM 8.9 mg/dL (8.4-10.2); CARBON DIOXIDE 23 mmol/L (22-29); CHLORIDE 108 mmol/L (98-107); CREATININE, SERUM 0.85 mg/dL (0.57-1.11); EST GLOMERULAR FILTRATION RATE > 60 ML/MIN (60-); GLUCOSE 91 mg/dL (74-118); POTASSIUM 3.6 mmol/L (3.5-5.1); SODIUM 142 mmol/L (136-145)
[2018-10-19] MEDS ORDERED: SODIUM CHLORIDE 0.9% 100 ML ONE (10:42)
[2018-10-19] MEDS ORDERED: ACETAMINOPHEN 1000 MG/100 ML IV PRN (12:00)
[2018-10-19] MEDS ORDERED: HYDROMORPHONE 1MG/1ML INJ IV PRN (12:00)
[2018-10-19] MEDS ORDERED: HYDROCODONE/APAP 7.5MG-325MG 1 EA TAB PO PRN (12:00)
[2018-10-19] MEDS ORDERED: ONDANSETRON HCL INJ 2 MG/ML VIAL IV PRN (12:00)
[2018-10-19] MEDS ORDERED: HYDROMORPHONE 2MG/ML 2 MG/ML ML ONE (12:11)
--- OUTSIDE RECORDS SUMMARY | 2018-10-19 12:33 | XMS REPORT | Clinical Summary ---
Author Author [facility] Address Unknown Phone Unavailable Care Team Providers Care Screw Machine Tender Name Role Phone Lianariley Brian Dyer PCP [...] Type Area Manufactur er 12/30/2021 APS-5440 / [id number] / [id number] Amniofix 4x4cm Aps-5440 - Cement/Jameson N/A: Neck MIMEDX [id number] ler/[employer] Implanted: Qty: 1 on 08/23/2017 by Arnie Pérez MD 12/01/2021 [id number] / [id number] / [id number] Actifuse Shape Bone Graft N/A: Neck APATECH Implanted: Qty: 1 on 08/23/2017 by Arnie Mosley MD [id number] / [id number] / [id number] 5 Cage N/A: Neck ORTHOFIX Implanted: Qty: 2 on 08/23/2017 by Arnie Moon MD / / Cetra Plate N/A: Neck ORTHOFIX Implanted: Qty: 1 on 08/23/2017 by Arnie Moon MD / / [id number] Drilling Screw N/A: Neck ORTHOFIX Implanted: Qty: 4 on 08/23/2017 by Arnie Moon MD [id number] / / Drilling Constrained Screw N/A: Neck ORTHOFIX Implanted: Qty: 2 on 08/23/2017 by Arnie Moon MD Results Not on fileafter 10/18/2017 Insurance Payer Benefit Subscriber ID Type Phone Address Plan / Group CARE IMPROVEMENT MEDICARE CARE xxxxxxxxx [facility] Advance Directives For more information, please contact: [address] [address] Date Inactivated Comments Code Status Date Activated 08/24/2017 8:47 PM Full Code 08/23/2017 3:59 PM This code status was determined by: Patient
--- OUTSIDE RECORDS SUMMARY | 2018-10-19 12:33 | XMS REPORT | Clinical Summary ---
Author Author [email or web address] Organization [facility] Address Unknown Phone Unavailable Care Team Providers Care Reinforced Concrete Inspector Name Role Phone Brian Rogers MD PCP [...] Diagnosis ESTIMATED GFR Routine 09/26/2018 1:07 PM YEAST FERMENTATION ATTENDANT POC CREATININE Routine 09/26/2018 1:07 [address]ATION ATT[address]ANT CT ABDOMEN PELVIS W WO Routine 09/26/2018 Abdominal pain, CONTRAST 12:29 PM YEAST FERMENTATION ATTENDANT generalized after 10/18/2017 Results * Estimated GFR (09/26/2018 1:07 PM YEAST FERMENTATION ATTENDANT) Estimated GFR 56 (A) mL/min/1.73 m2 [facility] Comment: [facility] CatergoryUnitsInte rpretation G1 >=90 Normal or high G2 60-89Mildly decreased V4a91-43 Mildly to moderately decreased Y7d58-22 Moderately to severely decreased G4 15-29Severely decreased G5 <15Kidney failure The eGFR was calculated using the Chronic Kidney Disease Epidemiology Collaboration (CKD-EPI) equation. Interpretation is based on recommendations of the National Kidney Foundation-Kidney Disease Outcomes Quality Initiative (NKF-KDOQI) published in 2014. Specimen Blood Performing Organization Address [facility] [place] [address] PATHOLOGY AND GENOMIC MEDICINE [address] * POC creatinine (09/26/2018 1:07 PM YEAST FERMENTATION ATTENDANT) POC creatinine 1.1 (H) 0.5 - 0.9 mg/dl [facility] Comment: [facility] Meter ID: [id number] Application Services Manager: Millie Peterson Specimen Blood Performing Organization Address [facility] [place] [address] PATHOLOGY AND GENOMIC MEDICINE [address] * CT Abdomen Pelvis W Wo Contrast (09/26/2018 12:29 PM YEAST FERMENTATION ATTENDANT) Narrative Performed At EXAMINATION:CT ABDOMEN PELVIS W [...] 1 left renal cyst. Unremarkable exam otherwise. [id number] Procedure Note Hm Interface, Radiology Results Incoming - 09/26/2018 12:51 PM YEAST FERMENTATION ATTENDANT EXAMINATION: CT ABDOMEN PELVIS W WO CONTRAST [...] 1 left renal cyst. Unremarkable exam otherwise. [id number] Performing Organization Address City/State/Zipcode Phone Number [facility] [address] [place] [address] after 10/18/2017 Insurance Payer Benefit Subscriber ID Type Phone Address Plan / Group UHC MEDICARE UNITEDHC xxxxxxxxx [employer] (Home) [place] [address] Advance Directives Patient has advance care planning documents on file. For more information, plesandip e contact: Joey Woods [address] [place] [address]
[2018-10-19] MEDS ORDERED: ONDANSETRON HCL INJ 2 MG/ML VIAL ONE ×2 (12:54→20:00)
[2018-10-19] MEDS ORDERED: FENTANYL CITRATE/PF 100MCG/2 ML INJ ONE ×2 (13:01→19:39)
[2018-10-19 14:25] VITALS: BP 122/74
[2018-10-19] MEDS: KETOROLAC TROMETHAMINE 30 MG/ML VIAL IV PRN ×2 (14:40→21:43)
[2018-10-19 14:45] VITALS: BP 122/74
--- NOTE | 2018-10-19 14:45 | Operative Report ---
DATE OF PROCEDURE: October 19, 2018 PREOPERATIVE DIAGNOSIS: Ventral hernia. POSTOPERATIVE DIAGNOSIS: Ventral hernia. OPERATION PERFORMED: Repair of ventral hernia with Ultra Pro mesh. ANESTHESIA: General. COMPLICATIONS: None. ESTIMATED BLOOD LOSS: Minimal. DESCRIPTION OF PROCEDURE: With the patient lying in bed in the supine position under good general endotracheal anesthesia, the abdomen was prepped with Betadine solution and draped in the usual manner. The old midline incision was then and reopened in the periumbilical region and carried down through the subcutaneous tissue, and immediately a hernia sac was encountered. The fascia was then dissected all the way around the area of the umbilicus and was . There was a second smaller defect up higher. Once the fascia was cleared all the way around, the hernia sac was then opened. There was some incarcerated omentum contained within it. Adhesions were lysed. The omentum was reduced back to the intra-abdominal cavity. The excess of the hernia sac was resected. The smaller second opening above the main hernia defect was then closed with a figure-of-8 of 0 Ethibond. The main defect was then closed transversely using interrupted sutures of 0 Ethibond. This gave us a satisfactory closure without any tension. Ultra Pro mesh was then placed to cover the entire area all the way around, and was anchored all the way around using interrupted sutures of 0 Ethibond and 0 Vicryl. The whole area was thoroughly irrigated. Perfect hemostasis was ascertained. The umbilicus was then tacked back down to the midline fascia with 3-0 Vicryl. The subcutaneous tissue was approximated with 3-0 Vicryl and the skin was closed with clips. A dressing was applied. The sponge, lap and needle count was correct. The patient tolerated the procedure well and returned to the recovery room in stable condition. Job#: [id number] RI
[2018-10-19] MEDS ORDERED: ALPRAZOLAM 1.5 MG SCH (15:00)
[2018-10-19] MEDS: ALPRAZOLAM 0.5 MG TAB PO SCH ×2 (15:29→21:43)
[2018-10-19] MEDS: GABAPENTIN 400 MG CAP PO SCH ×2 (15:29→21:43)
[2018-10-19 15:31] VITALS: BP 122/74
[2018-10-19 16:30] VITALS: BP 109/64
[2018-10-19] MEDS: SODIUM CHLORIDE 0.9% 1000ML 1,000 ML IV SCH ×2 (16:55→21:43)
[2018-10-19] MEDS: HYDROMORPHONE 2MG/ML 2 MG/ML ML IV PRN ×2 (17:07→23:48)
[2018-10-19 19:00] VITALS: BP 109/64
[2018-10-19] MEDS ORDERED: MIDAZOLAM HCL 2 MG/2 ML VIAL ONE (19:39)
[2018-10-19 20:00] VITALS: BP 109/70
[2018-10-19] MEDS ORDERED: DEXAMETHASONE SOD PHOS INJ 4 MG/ML VIAL ONE (20:00)
[2018-10-19] MEDS ORDERED: PHENYLEPHRINE HCL 1% 10 MG/ML VIAL ONE (20:00)
[2018-10-19] MEDS ORDERED: SEVOFLURANE INHAL SOLN 250 ML PEN BTL ONE (20:00)
[2018-10-19] MEDS ORDERED: NEOSTIGMINE 5 MG/5ML SYR ONE (20:00)
[2018-10-19] MEDS ORDERED: ROCURONIUM BROMIDE 10 MG/ML 5ML VIAL ONE (20:00)
[2018-10-19] MEDS ORDERED: PROPOFOL IV EMULSION 10 MG/ML 20 ML VIAL ONE (20:00)
[2018-10-19] MEDS ORDERED: GLYCOPYRROLATE INJ 1MG/ 5 ML SYR ONE (20:00)
[2018-10-19] MEDS ORDERED: LIDOCAINE HCL 2% LOCAL INJ 5 ML SDV VIAL INJ ONE (20:00)
[2018-10-19] MEDS ORDERED: BUSPIRONE HCL 10 MG TABLET PO SCH (21:00)
[2018-10-19] MEDS ORDERED: BUSPIRONE HCL 5 MG TAB PO SCH (21:00)
[2018-10-20] VITALS: BP 104/63
--- NOTE | 2018-10-20 00:42 | NUR ---
On entering the room, patient had abdominal binder pulled down past her umbilical area. Instructed patient to leave binder intact and not pull it down so as to protect the surgical area. Patient states it hurts. Administered pain medications prn.
[2018-10-20 04:00] VITALS: BP 100/58
[2018-10-20] MEDS: HYDROMORPHONE 2MG/ML 2 MG/ML ML IV PRN ×2 (05:08→07:30)
--- NOTE | 2018-10-20 05:34 | NUR ---
Patient states she can not urinate and she straight caths herself at home on occasion. Call and got order for straight cath.
[2018-10-20] MEDS ORDERED: PANTOPRAZOLE SOD 40 MG TABEC PO SCH (07:30)
[2018-10-20 08:14] VITALS: BP 123/79
[2018-10-20] MEDS ORDERED: OXYBUTYNIN CHLORIDE 5 MG TAB PO SCH (09:00)
[2018-10-20] MEDS: ALPRAZOLAM 0.5 MG TAB PO SCH (09:51)
[2018-10-20] MEDS: GABAPENTIN 400 MG CAP PO SCH (09:51)
[2018-10-20 10:13] VITALS: BP 123/79
--- NOTE | 2018-10-20 10:50 | NUR ---
CASE MANAGEMENT INITIAL ASSESSMENT Space Buyer to bedside to discuss plan of care with patient/family. CM/SW role and care transitions discussed. Anticipated discharge plan discussed along with duration of care. CM/SW discussed patients right to make decisions in care. CM/SW work hours given. Patient lives: IN RV BY SELF 3 STEPS IN Admit/Transfer: VIA HOME HERE FOR SCHEDULED PROCEDURE POA/Emergency contact: STATES FRIEND AND IS ON FILE Current/Previous Home Health: NONE PCP/Follow-up Care: [facility] Current/Previous DME: LIN Other Services: NONE Employment Status: RETIRED Areas of Concerns: NONE Referral Needs: NONE Education Needs: NONE IMM/LAGUNA given and signed (if applicable): LAGU[place] Goal for discharge: RETURN HOME INDEPENDENTLY CM/SW left business card at the bedside with contact information. Name and number was also written on the patients whiteboard. Patient verbalized understanding of discussion. CM will follow-up with ongoing discharge and transition of care needs.
[2018-10-20 12:14] VITALS: BP 118/69
== END 2018-10-20 13:47 | disposition home or self-care (01) ==
LOC: OR 08:48 → PACU V 12:01 → IMCU 14:27
PROVIDERS: ADMIT Surgery; ATTEND Surgery
DX: K43.0 Incisional hernia with obstruction, without gangrene (principal); K58.9 Irritable bowel syndrome, unspecified; Z01.810 Encounter for preprocedural cardiovascular examination; Z01.812 Encounter for preprocedural laboratory examination; Z01.811 Encounter for preprocedural respiratory examination; I10 Essential (primary) hypertension; E66.9 Obesity, unspecified; F41.9 Anxiety disorder, unspecified; Z68.32 Body mass index [BMI] 32.0-32.9, adult
CPT/HCPCS: 36415; 49561; 49568; 80053; 85025; 85610; 85730; C1781; G0378 ×2; J1100; J1170 ×2; J1885; J2001; J2250; J2370; J2405; J2704; J3490; J7030 ×2; J7050; S0164 ×2